=== PATIENT | female | born 1965 | race Caucasian/White ===

== ENCOUNTER 2017-11-20 19:47 | Emergency (ER) | payer MEDICAID, SELFPAY ==
[2017-11-20 22:15] VITALS: BP 147/109; PULSE 93; RESP 18; TEMP 36.6; O2SAT 91; BMI 25.8
--- NOTE | 2017-11-21 00:14 | HMH.EDBACK ---
ED Disposition Clinical Impression: Lumbar radiculopathy Disposition: Home, Self-Care Condition on Discharge: Good Instructions: DI for Low Back Pain Referrals: Dashawn Magdaleno MD [Primary Care Provider] - - Critical Care Critical Care Time: No Attestation: On 11/20/17, the high probability of a clinically significant, sudden or life threatening deterioration of the following system(s) required my full and direct attention, intervention and personal management. The time I documented below is in addition to time spent performing reported procedures but includes the following listed in this critical care notation. Medical Decision Making - Medical Records Medical records reviewed: Yes: I reviewed the patient's medical records. Vital Signs: 11/20/17 22:15 Temperature 97.9 F Temperature Source Oral Pulse Rate [Left Brachial] 93 H Respiratory Rate 18 Blood Pressure [Left Arm] 147/109 Blood Pressure Mean [Left Arm] 121 Blood Pressure Source [Left Arm] Automatic Cuff Blood Pressure Position [Left Arm] Sitting 02 Sat by Pulse Oximetry 91 L Oxygen Delivery Method Room Air - Jesus Manuel Inquiry Pt receiving controlled substance: No [facility] History Medical History: Denies:: Cancer, Diabetes Mellitus Type 1, Diabetes Mellitus Type 2, MRSA Amputation: No Fractures: No - *Social History Educational Level: Completed High School Smoking Status: Current every day smoker Tobacco Type: cigarettes # Packs/Day (cigarettes): 1 Alcohol Intake: never - Psychiatric History Expresses thoughts of harming self/others: None Suicide Plan Description: No Plan ROS Obtained: Yes All systems reviewed & no additional complaints except - Genitourinary Denies blood in urine - Musculoskeletal Reports back pain, Reports radiating pain into limb Physical Exam - General General appearance: alert - Head Head exam: atraumatic - Eye Eye exam: Present: PERRL, EOMI - ENT ENT exam: Present: normal oropharynx - Neck Neck exam: Present: normal inspection - Respiratory Respiratory exam: Present: normal lung sounds bilaterally - Cardiovascular Cardiovascular exam: Present: regular rate - Extremities Exam Extremities exam: Present: normal inspection - Back Exam Back exam: Present: straight leg raise (L) - Neurological Exam Neurological exam: Present: alert, oriented X3 - Psychiatric Psychiatric exam: Present: normal affect - Skin Skin exam: Present: warm Back Pain HPI - General Chief Complaint: Back Pain/Injury Stated Complaint: left leg pain Time Seen by Provider: 11/21/17 00:15 Mode of Arrival: Wheelchair Source of Information: Patient, Spouse Limitations: No Limitations Description of Symptoms (Recalled from ER Triage Doc. by RN): REPORTS SCIATIC PAIN IN LEFT LEG - History of Present Illness HPI Narrative: pt with acute excerbation of l/s disc disease Complaint: back pain Onset (ago): hour(s) Similar Symptoms Previously: Yes Location: lumbar spine Severity: moderate Radiation: left leg Relieving factors: none Exacerbating factors: movement - Related Data Home Medications Medication Instructions Recorded Confirmed Acyclovir 800 mg PO DAILY 11/20/17 11/20/17 Amlodipine Besylate [Amlodipine 10 mg PO DAILY 11/20/17 11/20/17 10mg Tab] Carvedilol [Carvedilol 12.5mg Tab] 12.5 mg PO DAILY 11/20/17 11/20/17 Cyclobenzaprine HCl 10 mg PO TID 11/20/17 11/20/17 [Cyclobenzaprine 10mg Tab] Fluticasone Propionate [Flonase 1 spr NS BID 11/20/17 11/20/17 50mcg nasal spray 16gm] Gabapentin [Neurontin 600mg 600 mg PO TID 11/20/17 11/20/17 tablet] Levothyroxine Sodium 75 mcg PO DAILY 11/20/17 11/20/17 [Levothyroxine 75mcg (0.075mg) Tab] Loratadine/Pseudoephedrine 1 each PO DAILY 11/20/17 11/20/17 [Allergy Relief D-24 Tablet] Losartan Potassium 50 mg PO DAILY 11/20/17 11/20/17 Tiotropium [place] [Spiriva 18 mcg IH BID 11/20/17 11/20/17 18mcg/puff inhaler] raNITIdine
--- NOTE | 2017-11-21 00:18 | ED_ITS ---
ED Disposition Clinical Impression: Lumbar radiculopathy Disposition: Home, Self-Care Condition on Discharge: Good Instructions: DI for Low Back Pain Referrals: Dashawn Magdaleno MD [Primary Care Provider] - - Critical Care Critical Care Time: No Attestation: On 11/20/17, the high probability of a clinically significant, sudden or life threatening deterioration of the following system(s) required my full and direct attention, intervention and personal management. The time I documented below is in addition to time spent performing reported procedures but includes the following listed in this critical care notation. Medical Decision Making - Medical Records Medical records reviewed: Yes: I reviewed the patient's medical records. Vital Signs: 11/20/17 22:15 Temperature 97.9 F Temperature Source Oral Pulse Rate [Left Brachial] 93 H Respiratory Rate 18 Blood Pressure [Left Arm] 147/109 Blood Pressure Mean [Left Arm] 121 Blood Pressure Source [Left Arm] Automatic Cuff Blood Pressure Position [Left Arm] Sitting 02 Sat by Pulse Oximetry 91 L Oxygen Delivery Method Room Air - Jesus Manuel Inquiry Pt receiving controlled substance: No [facility] History Medical History: Denies:: Cancer, Diabetes Mellitus Type 1, Diabetes Mellitus Type 2, MRSA Amputation: No Fractures: No - *Social History Educational Level: Completed High School Smoking Status: Current every day smoker Tobacco Type: cigarettes # Packs/Day (cigarettes): 1 Alcohol Intake: never - Psychiatric History Expresses thoughts of harming self/others: None Suicide Plan Description: No Plan ROS Obtained: Yes All systems reviewed & no additional complaints except - Genitourinary Denies blood in urine - Musculoskeletal Reports back pain, Reports radiating pain into limb Physical Exam - General General appearance: alert - Head Head exam: atraumatic - Eye Eye exam: Present: PERRL, EOMI - ENT ENT exam: Present: normal oropharynx - Neck Neck exam: Present: normal inspection - Respiratory Respiratory exam: Present: normal lung sounds bilaterally - Cardiovascular Cardiovascular exam: Present: regular rate - Extremities Exam Extremities exam: Present: normal inspection - Back Exam Back exam: Present: straight leg raise (L) - Neurological Exam Neurological exam: Present: alert, oriented X3 - Psychiatric Psychiatric exam: Present: normal affect - Skin Skin exam: Present: warm Back Pain HPI - General Chief Complaint: Back Pain/Injury Stated Complaint: left leg pain Time Seen by Provider: 11/21/17 00:15 Mode of Arrival: Wheelchair Source of Information: Patient, Spouse Limitations: No Limitations Description of Symptoms (Recalled from ER Triage Doc. by RN): REPORTS SCIATIC PAIN IN LEFT LEG - History of Present Illness HPI Narrative: pt with acute excerbation of l/s disc disease Complaint: back pain Onset (ago): hour(s) Similar Symptoms Previously: Yes Location: lumbar spine Severity: moderate Radiation: left leg Relieving factors: none Exacerbating factors: movement - Related Data Home Medications Medication Instructions Recorded Confirmed Acyclovir 800 mg PO DAILY 11/20/17 11/20/17 Amlodipine Besylate [Amlodipine 10 mg PO DAILY 11/20/17
[2017-11-21 00:20] VITALS: BP 145/89; PULSE 89; RESP 16; TEMP 36.7; O2SAT 91
== END 2017-11-21 00:27 | disposition home or self-care (01) ==
PROVIDERS: Emergency Provider Emergency Medicine; Family Provider Internal Medicine Adolescent Medicine; PCP Emergency Medicine
DX: M54.32 Sciatica, left side (principal); F17.210 Nicotine dependence, cigarettes, uncomplicated
CPT/HCPCS: 96372; 99283

== ENCOUNTER → 2017-11-21 19:26 | Outpatient (REF) | payer MEDICAID, SELFPAY ==
[2017-11-21 20:07] LABS: Amphetamine/Metha Screen,Urine Negative ng/mL (<1000); Barbiturates Screen,Urine Negative ng/mL (<200); Benzodiazepines Screen,Urine Negative ng/mL (200); Cannabinoid Screen,Urine Positive ng/mL (<50); Cocaine Screen,Urine Negative ng/g (<300); Methadone Screen,Urine Negative ng/mL (<300); Opiate Screen,Urine Negative ng/mL (<300); Phencyclidine Screen,Urine Negative ng/mL (<25)
== END ==
LOC: LAB 19:26
PROVIDERS: Visit Provider Emergency Medicine
DX: Z79.899 Other long term (current) drug therapy (principal)
CPT/HCPCS: 80305

== ENCOUNTER → 2017-11-23 13:52 | Outpatient (CLI) | payer MEDICAID, SELFPAY ==
--- NOTE | 2017-11-23 | US_ITS ---
MM DIG MAMM BI DX W/CAD, US BREAST LT COMPLETE, US BREAST RT COMPLETE COMPARISON: 10/26/2017 INDICATION: Follow-up abnormal mammogram ORDERING PHYSICIAN: Dashanw Magdaleno MD PATIENT AGE: 52 years TECHNIQUE: Spot compression views are obtained of both breasts along with bilateral breast ultrasound FINDINGS: Left breast: There is a lobulated 2 x 1.4 cm nodule containing coarse calcification in the outer aspect of the left breast at 3:00 region corresponding to the mammographic abnormality. This is all and on ultrasound probably related to fibroadenoma however, biopsy is recommended. Asymmetric density is present in the medial left breast and appear to compress out as fibroglandular tissue Right breast: Asymmetric areas in the upper aspect of the right breast somewhat compress out and are probably related asymmetric fibroglandular tissue. Left breast ultrasound: There is a 2.8 x 0.8 cm solid nodule in the outer aspect of the left breast corresponding to the mammographic abnormality. The nodule is somewhat hypoechoic and there is decreased through transmission of sound. The nodule is fairly well-circumscribed without obvious spiculation' s. Small nodes are present in the axilla. Right breast ultrasound: No cystic or solid mass evident. No abnormalities evident in the areas of asymmetric density on the mammogram. IMPRESSION: 2.8 cm solid nodule outer aspect of left breast probably related to fibroadenoma however there are some features that are somewhat concerning an ultrasound-guided mammotome biopsy is recommended BI-RADS Category: 4 Suspicious Abnormality-Biopsy Considered RECOMMENDED FOLLOW-UP: IMM - IMMEDIATE FOLLOW-UP RECOMMENDED Ultrasound guided biopsy (A letter has been sent to the patient regarding results of the study.)
== END ==
PROVIDERS: Family Provider Internal Medicine Adolescent Medicine; PCP Emergency Medicine; Visit Provider Emergency Medicine
DX: R92.8 Other abnormal and inconclusive findings on diagnostic imaging of breast (principal)
CPT/HCPCS: 19083; 76641; 77066

== ENCOUNTER → 2017-12-06 13:34 | Outpatient (CLI) | payer MEDICAID, SELFPAY ==
--- NOTE | 2017-12-06 13:36 | US_ITS ---
US biopsy guidance, US breast LT complete HISTORY: Abnormal ultrasound and mammogram ITS.REASON: abnormal mammogram ORDERING PHYSICIAN: Dashawn Magdaleno MD PATIENT AGE: 52 years COMPARISON: Ultrasound of 11/23/2017 and mammogram of 11/23/2017 ULTRASOUND LEFT BREAST COMPLETE WITH AXILLA: Prebiopsy ultrasound performed of the left breast confirming the presence of an oval 2.8 x 0.87 m hypoechoic nodule within the 3:00 region of the left breast corresponding to the previously noted abnormality of 11/23/2017. LEFT BREAST BIOPSY WITH ULTRASOUND GUIDANCE, FNA AND CORE BIOPSY: TECHNIQUE: Following obtaining informed consent, using aseptic technique and local anesthesia with buffered lidocaine, fine-needle aspiration was performed of the nodule of interest using sonographic guidance. 3 passes were made into the nodule with a 25-gauge needle. Specimen was given to cytology. Multiple core biopsies were performed with 16-gauge Pb-Cut needle. It was difficult in penetrating the lesion as the needle was persistently deviated by the lesion. However, with ultrasound guidance the lesion was penetrated with a core biopsy needle.. The patient tolerated the procedure well without evidence of immediate complications and left the ultrasound suite in stable condition. CYTOLOGY:Negative for malignancy. Benign ductal groups and bone cells Pathology: Benign breast with stromal fibrosis and adenosis. Negative for carcinoma. IMPRESSION: The fine needle aspiration and core biopsy of left breast nodule shows benign findings. Would recommend short-term sonographic follow-up in 3 months to confirm short-term stability due to the difficulty in performing the biopsy.
== END ==
PROVIDERS: Family Provider Internal Medicine Adolescent Medicine; PCP Emergency Medicine; Visit Provider Emergency Medicine
DX: R92.8 Other abnormal and inconclusive findings on diagnostic imaging of breast (principal)
CPT/HCPCS: 19083; 76641; 76942; C2618

== ENCOUNTER → 2018-01-17 15:04 | Outpatient (REF) | payer MEDICAID, SELFPAY ==
[2018-01-17 19:22] LABS: Amphetamine/Metha Screen,Urine Negative ng/mL (<1000); Barbiturates Screen,Urine Negative ng/mL (<200); Benzodiazepines Screen,Urine Negative ng/mL (200); Cannabinoid Screen,Urine Positive ng/mL (<50); Cocaine Screen,Urine Negative ng/g (<300); Methadone Screen,Urine Negative ng/mL (<300); Opiate Screen,Urine Positive ng/mL (<300); Phencyclidine Screen,Urine Negative ng/mL (<25)
== END ==
LOC: LAB 15:04
PROVIDERS: Visit Provider Emergency Medicine
DX: Z79.899 Other long term (current) drug therapy (principal)
CPT/HCPCS: 80305

== ENCOUNTER → 2018-01-24 13:53 | Outpatient (CLI) | payer MEDICAID, SELFPAY ==
--- NOTE | 2018-01-24 13:57 | XR_ITS ---
XR hip LT 2-3V w/pelvis HISTORY: ITS.REASON: Hip Pain ORDERING PHYSICIAN: Dashawn Magdaleno MD PATIENT AGE: 52 years COMPARISON: None FINDINGS: No fracture or dislocation is evident. Minimal osteoarthritic changes with minimal osteophyte formation along the femoral head inferiorly. The joint space is well-preserved. No fracture or dislocation. No lytic or blastic change. IMPRESSION: Minimal osteoarthritis of the left hip
== END ==
PROVIDERS: PCP Emergency Medicine; Visit Provider Emergency Medicine
DX: M25.552 Pain in left hip (principal)
CPT/HCPCS: 73502

== ENCOUNTER → 2018-02-07 15:37 | Outpatient (CLI) | payer MEDICAID, SELFPAY ==
--- NOTE | 2018-02-07 15:40 | MR_ITS ---
MR lumbar spine wo con HISTORY: Low back pain worse on the left with left hip pain and bilateral leg numbness ORDERING PHYSICIAN: Dashawn Magdaleno MD PATIENT AGE: 52 years COMPARISON: None TECHNIQUE: Standard multiplanar multiecho sequences are performed without contrast. 3-D MIP and myelographic images are also rendered and reviewed FINDINGS: There is normal alignment. The spinal cord ends at the T12-L1 level. T11-T12: Minimal central disc protrusion with mild degenerative disc disease without impingement. T12-L1: Unremarkable. L1-L2: Mild degenerative disc disease with minimal bulging disc and minimal central disc protrusion slightly eccentric toward the right with mild facet and ligamentum flavum hypertrophy with mild bilateral foraminal narrowing. L2-L3: Mild facet and ligamentum flavum hypertrophy. L3-L4: Facet ligamentum hypertrophy with mild bilateral lateral recess and foraminal narrowing. Minimal bulging disc. L4-L5: Bulging disc along with facet and ligamentum flavum hypertrophy. There is small broad-based left paracentral disc protrusion. This is compressing upon the left L4 nerve root causing moderate left lateral recess narrowing and moderate left-sided foraminal narrowing. There is mild narrowing of the canal at this level and approximately 11 mm. L5-S1: Facet and hypertrophic change with mild bilateral foraminal narrowing slightly greater on the left. IMPRESSION: 1. Mild multilevel spondylosis with degenerative disc disease along with facet and ligamentum flavum hypertrophy. Please see above for detailed description at each level. 2. Minimal central disc protrusion T11-T12 3. Mild degenerative disc disease with minimal bulging disc and minimal central disc protrusion at L1-L2 slightly eccentric toward the right with mild facet and ligamentum flavum hypertrophy with mild bilateral foraminal narrowing 4. Bulging disc at L4-5 along with facet and ligamentum flavum hypertrophy. There is small broad-based left paracentral disc protrusion. This is compressing upon the left L4 nerve root causing moderate left lateral recess narrowing and moderate left-sided foraminal narrowing. There is mild narrowing of the canal at this level and approximately 11 mm.
== END ==
PROVIDERS: Family Provider Internal Medicine Adolescent Medicine; PCP Emergency Medicine; Visit Provider Emergency Medicine
DX: M54.9 Dorsalgia, unspecified (principal)
CPT/HCPCS: 72148; 76376

== ENCOUNTER → 2018-02-15 13:14 | Outpatient (CLI) | payer MEDICAID, SELFPAY ==
[2018-02-15 17:35] LABS: Amphetamine/Metha Screen,Urine Negative ng/mL (<1000); Barbiturates Screen,Urine Negative ng/mL (<200); Benzodiazepines Screen,Urine Positive ng/mL (200); Cannabinoid Screen,Urine Positive ng/mL (<50); Cocaine Screen,Urine Negative ng/g (<300); Methadone Screen,Urine Negative ng/mL (<300); Opiate Screen,Urine Positive ng/mL (<300); Phencyclidine Screen,Urine Negative ng/mL (<25)
== END ==
PROVIDERS: Visit Provider Emergency Medicine
DX: Z79.899 Other long term (current) drug therapy (principal)
CPT/HCPCS: 80305

== ENCOUNTER → 2018-03-20 13:51 | Outpatient (REF) | payer MEDICAID, SELFPAY ==
[2018-03-20 16:55] LABS: Amphetamine/Metha Screen,Urine Negative ng/mL (<1000); Barbiturates Screen,Urine Negative ng/mL (<200); Benzodiazepines Screen,Urine Negative ng/mL (200); Cannabinoid Screen,Urine Positive ng/mL (<50); Cocaine Screen,Urine Negative ng/g (<300); Methadone Screen,Urine Negative ng/mL (<300); Opiate Screen,Urine Positive ng/mL (<300); Phencyclidine Screen,Urine Negative ng/mL (<25)
== END ==
LOC: LAB 13:51
PROVIDERS: Visit Provider Emergency Medicine
DX: Z79.899 Other long term (current) drug therapy (principal)
CPT/HCPCS: 80305

== ENCOUNTER → 2018-04-13 15:56 | Outpatient (CLI) | payer MEDICAID, SELFPAY | PROVIDERS: Visit Provider Emergency Medicine | DX: Z79.899 Other long term (current) drug therapy (principal) ==

== ENCOUNTER → 2018-05-16 11:08 | Outpatient (REF) | payer MEDICAID, SELFPAY ==
[2018-05-16 16:21] LABS: Amphetamine/Metha Screen,Urine Negative ng/mL (<1000); Barbiturates Screen,Urine Negative ng/mL (<200); Benzodiazepines Screen,Urine Negative ng/mL (200); Cannabinoid Screen,Urine Positive ng/mL (<50); Cocaine Screen,Urine Negative ng/g (<300); Methadone Screen,Urine Negative ng/mL (<300); Opiate Screen,Urine Positive ng/mL (<300); Phencyclidine Screen,Urine Negative ng/mL (<25)
== END ==
LOC: LAB 11:08
PROVIDERS: Visit Provider Emergency Medicine
DX: Z79.899 Other long term (current) drug therapy (principal)
CPT/HCPCS: 80305

== ENCOUNTER → 2018-05-22 11:18 | Outpatient (CLI) | payer MEDICAID, SELFPAY ==
[2018-05-22 12:05] VITALS: PULSE 83
== END ==
PROVIDERS: Family Provider Internal Medicine Adolescent Medicine; PCP Emergency Medicine; Visit Provider Emergency Medicine
DX: J44.9 Chronic obstructive pulmonary disease, unspecified (principal)
CPT/HCPCS: 94060; 94640

== ENCOUNTER → 2018-06-15 15:42 | Outpatient (REF) | payer MEDICAID, SELFPAY ==
[2018-06-15 18:53] LABS: Amphetamine/Metha Screen,Urine Negative ng/mL (<1000); Barbiturates Screen,Urine Negative ng/mL (<200); Benzodiazepines Screen,Urine Negative ng/mL (<200); Cannabinoid Screen,Urine Positive ng/mL (<50); Cocaine Screen,Urine Negative ng/mL (<300); Methadone Screen,Urine Negative ng/mL (<300); Opiate Screen,Urine Positive ng/mL (<300); Phencyclidine Screen,Urine Negative ng/mL (<25)
== END ==
LOC: LAB 15:42
PROVIDERS: Visit Provider Emergency Medicine
DX: Z79.899 Other long term (current) drug therapy (principal)
CPT/HCPCS: 80305

== ENCOUNTER → 2018-07-17 10:18 | Outpatient (REF) | payer MEDICAID, SELFPAY ==
[2018-07-17 17:09] LABS: Amphetamine/Metha Screen,Urine Negative ng/mL (<1000); Barbiturates Screen,Urine Negative ng/mL (<200); Benzodiazepines Screen,Urine Negative ng/mL (<200); Cannabinoid Screen,Urine Positive ng/mL (<50); Cocaine Screen,Urine Negative ng/mL (<300); Methadone Screen,Urine Negative ng/mL (<300); Opiate Screen,Urine Positive ng/mL (<300); Phencyclidine Screen,Urine Negative ng/mL (<25)
== END ==
LOC: LAB 10:18
PROVIDERS: Visit Provider Emergency Medicine
DX: Z79.899 Other long term (current) drug therapy (principal)
CPT/HCPCS: 80305

== ENCOUNTER → 2018-08-06 06:30 | Outpatient (CLI) | payer MEDICAID, SELFPAY ==
--- NOTE | 2018-08-06 06:32 | NM_ITS ---
History and Indications: Hypertension, tobacco use, family history, chest pain shortness of breath Procedure: Patient received a 0.4 mg of intravenous Lexiscan, resting heart rate was 73 bpm resting blood pressure 131/92, with intravenous Lexiscan maximum heart rate achieved was 106 bpm which is less than 85% of the maximum predicted heart rate and a blood pressure was 132/95. With Lexiscan patient complained of mild shortness of breath Electrocardiogram: Resting electrocardiogram showed sinus rhythm, with Lexiscan there is less than 1.[address] segment depression noted from the baseline EKG. The EKG portion of the Lexiscan Myoview is nondiagnostic. Cardiac stress and resting SPECT images: Cardiac stress and rest SPECT images were obtained using technetium 99 Myoview 32.6 mCi at stress and 9.6 mCi at rest, gated SPECT further analysis of segmental wall motion and calculation of the ejection fraction also done. Cardiac stress and resting SPECT images show uniform myocardial activity without segmental perfusion abnormality, computer derived ejection fraction 60% with no regional wall motion abnormality. Normal contractility. Conclusion: 1. The EKG portion of the Lexiscan Myoview is nondiagnostic. 2. No scintigraphic evidence of reversible ischemia seen, computer derived ejection fraction is 60% with no regional wall motion abnormality, right ventricle is normal size and contractility. 3. Normal Lexiscan Myoview study.
--- NOTE | 2018-08-06 08:19 | HMH.ITSHM ---
CARVEDILOL AMLODIPINE LOSARTAN CYCLOBENZAPRINE OMEPRAZOLE LEVOTHYROXINE OXYCODONE FLUTICASONE BREO GABAPENTIN BUPROPION
== END ==
PROVIDERS: Family Provider Internal Medicine Adolescent Medicine; PCP Emergency Medicine; Visit Provider Internal Medicine
DX: R07.9 Chest pain, unspecified (principal); I20.9 Angina pectoris, unspecified; R06.09 Other forms of dyspnea; E03.9 Hypothyroidism, unspecified; G47.9 Sleep disorder, unspecified; I10 Essential (primary) hypertension; J44.9 Chronic obstructive pulmonary disease, unspecified; K21.9 Gastro-esophageal reflux disease without esophagitis; R06.83 Snoring; R40.0 Somnolence; Z72.0 Tobacco use
CPT/HCPCS: 78452; 93017; 93306; A9502; J2785

== ENCOUNTER → 2018-08-13 17:22 | Outpatient (REF) | payer MEDICAID, SELFPAY ==
[2018-08-13 23:36] LABS: Amphetamine/Metha Screen,Urine Negative ng/mL (<1000); Barbiturates Screen,Urine Negative ng/mL (<200); Benzodiazepines Screen,Urine Negative ng/mL (<200); Cannabinoid Screen,Urine Positive ng/mL (<50); Cocaine Screen,Urine Negative ng/mL (<300); Methadone Screen,Urine Negative ng/mL (<300); Opiate Screen,Urine Positive ng/mL (<300); Phencyclidine Screen,Urine Negative ng/mL (<25)
== END ==
LOC: LAB 17:22
PROVIDERS: Visit Provider Emergency Medicine
DX: M54.16 Radiculopathy, lumbar region (principal); Z79.891 Long term (current) use of opiate analgesic
CPT/HCPCS: 80305

== ENCOUNTER → 2018-09-03 16:24 | Outpatient (REF) | payer MEDICAID, SELFPAY ==
[2018-09-03 19:09] LABS: Amphetamine/Metha Screen,Urine Negative ng/mL (<1000); Barbiturates Screen,Urine Negative ng/mL (<200); Benzodiazepines Screen,Urine Negative ng/mL (<200); Cannabinoid Screen,Urine Positive ng/mL (<50); Cocaine Screen,Urine Negative ng/mL (<300); Methadone Screen,Urine Negative ng/mL (<300); Opiate Screen,Urine Positive ng/mL (<300); Phencyclidine Screen,Urine Negative ng/mL (<25)
== END ==
LOC: LAB 16:24
PROVIDERS: Visit Provider Emergency Medicine
DX: Z79.899 Other long term (current) drug therapy (principal)
CPT/HCPCS: 80305

== ENCOUNTER → 2018-10-09 13:24 | Outpatient (CLI) | payer MEDICAID, SELFPAY ==
[2018-10-09 14:59] LABS: Amphetamine/Metha Screen,Urine Negative ng/mL (<1000); Barbiturates Screen,Urine Negative ng/mL (<200); Benzodiazepines Screen,Urine Negative ng/mL (<200); Cannabinoid Screen,Urine Positive ng/mL (<50); Cocaine Screen,Urine Negative ng/mL (<300); Methadone Screen,Urine Negative ng/mL (<300); Opiate Screen,Urine Positive ng/mL (<300); Phencyclidine Screen,Urine Negative ng/mL (<25)
== END ==
PROVIDERS: Visit Provider Emergency Medicine
DX: Z79.899 Other long term (current) drug therapy (principal)
CPT/HCPCS: 80305

== ENCOUNTER → 2018-11-07 13:46 | Outpatient (CLI) | payer MEDICAID, SELFPAY ==
[2018-11-07 21:11] LABS: Amphetamine/Metha Screen,Urine Negative ng/mL (<1000); Barbiturates Screen,Urine Negative ng/mL (<200); Benzodiazepines Screen,Urine Negative ng/mL (<200); Cannabinoid Screen,Urine Positive ng/mL (<50); Cocaine Screen,Urine Negative ng/mL (<300); Methadone Screen,Urine Negative ng/mL (<300); Opiate Screen,Urine Positive ng/mL (<300); Phencyclidine Screen,Urine Negative ng/mL (<25)
== END ==
PROVIDERS: Visit Provider Emergency Medicine
DX: Z79.899 Other long term (current) drug therapy (principal)
CPT/HCPCS: 80305

== ENCOUNTER → 2019-02-01 13:35 | Outpatient (CLI) | payer MEDICAID, SELFPAY ==
[2019-02-01 14:20] LABS: Amphetamine/Metha Screen,Urine Negative ng/mL (<1000); Barbiturates Screen,Urine Negative ng/mL (<200); Benzodiazepines Screen,Urine Negative ng/mL (<200); Cannabinoid Screen,Urine Positive ng/mL (<50); Cocaine Screen,Urine Negative ng/mL (<300); Methadone Screen,Urine Negative ng/mL (<300); Opiate Screen,Urine Positive ng/mL (<300); Phencyclidine Screen,Urine Negative ng/mL (<25)
== END ==
PROVIDERS: Visit Provider Emergency Medicine
DX: Z79.899 Other long term (current) drug therapy (principal)
CPT/HCPCS: 80305

== ENCOUNTER → 2019-02-27 10:09 | Outpatient (CLI) | payer MEDICAID, SELFPAY ==
--- NOTE | 2019-02-27 10:13 | MM_ITS ---
MM Dig screening mamm BI w/CAD ORDERING PHYSICIAN : Dashawn Magdaleno MD PATIENT AGE: 53 years GENDER: Female HISTORY no hormones. No new complaints. Previous needle biopsy left breast. Mother with breast cancer COMPARISON: Bilateral mammogram October 2017.. Bilateral diagnostic mammogram was spot views from November 2017. TECHNIQUE: Standard CC and MLO images were obtained. R2 CAD reviewed. Additional axillary cc & nipple profile MLO views bilateral LEFT BREAST:/... DISCUSSION & findings: Prior Ultrasound left breast November 23, 2017 and subsequent left breast ultrasound December 06, 2017 at time of percutaneous biopsy are reviewed. Patient had percutaneous ultrasound biopsy 12/06/2017- . Tissue obtained showed fibrocystic changes and adenosis did not show a fibroadenoma . Images clearly show the needle within the lesion with the FNA and subsequent core biopsy images, as well as performed by Dr. Clemens.. On today's images this ovoid slightly lobulated density at the deep left lateral left breast 3:00 appears is to be similar in size measurement.. Today 18 mm AP maximally.. The slightly denser appearing but this may be projectional and due to technique, on MLO view. It measures up to 22 mm length on the axillary cc view which appears similar most similar to the 2016 & 2018 mammogram. ... & Given there were benign biopsy results obtained from previous sampling this area, I believe follow-up would be adequate I would suggest a 6 month left breast mammogram & ultrasound follow up given its slightly lobulated character and slightly denser character on some views, so as to to further confirm stability. RIGHT BREAST. Stable appearing right breast with no new areas of concern Subtle minimal ridge of tissue at the deep axillary right breast is unchanged since 2017. And can be followed ....... IMPRESSION: ...... LEFT BREAST. Fairly stable appearance to the density at the deep 3:00 left breast No discrete change since initial available study from 2017. Ultrasound-guided Biopsy here November 2017 revealed benign findings; with no progression since since those exams. However given the focal slightly lobulated character & the fact that biopsy result did not confirm fibroadenoma ( as most suspected by ultrasound) would suggest a follow-up left mammogram along with left breast [id number] months to again evaluate this region to confirm stability. Hopefully With routine protocol thereafter. . RIGHT BREAST. No significant change, when slight difference in technique considered.. Stable subtle ridge density towards the tail the right breast. Follow-up in one year on the right adequate BI-RADS Category: 3 Probably Benign Finding Short Term Follow-up RECOMMENDED FOLLOW-UP: 6M -8 MONTH FOLLOW-UP Left mammogram and left breast ultrasound that time suggested (A letter has been sent to the patient regarding results of the study.)
== END ==
PROVIDERS: PCP Emergency Medicine; Visit Provider Emergency Medicine
DX: Z12.31 Encounter for screening mammogram for malignant neoplasm of breast (principal)
CPT/HCPCS: 77067

== ENCOUNTER → 2019-05-24 13:22 | Outpatient (CLI) | payer MEDICAID, SELFPAY ==
[2019-05-24 14:59] LABS: Amphetamine/Metha Screen,Urine Negative ng/mL (<1000); Barbiturates Screen,Urine Negative ng/mL (<200); Benzodiazepines Screen,Urine Negative ng/mL (<200); Cannabinoid Screen,Urine Positive ng/mL (<50); Cocaine Screen,Urine Negative ng/mL (<300); Methadone Screen,Urine Negative ng/mL (<300); Opiate Screen,Urine Positive ng/mL (<300); Phencyclidine Screen,Urine Negative ng/mL (<25)
== END ==
PROVIDERS: Visit Provider Emergency Medicine
DX: Z79.899 Other long term (current) drug therapy (principal)
CPT/HCPCS: 80305

== ENCOUNTER → 2019-05-30 12:52 | Outpatient (CLI) | payer MEDICAID, SELFPAY ==
--- NOTE | 2019-05-30 12:54 | US_ITS ---
MM Dig mamm DX unilat LT Ultrasound left breast completed with axilla since INDICATION: Follow-up abnormal mammogram ORDERING PHYSICIAN: TIP Darnell PATIENT AGE: 54 years COMPARISON: 02/27/2019, 11/23/2017 TECHNIQUE: Standard images performed along with spot compression views and left breast ultrasound FINDINGS: Macrolobulated nodular lesion is once again noted in the upper outer aspect of the left breast measuring approximately 2 cm. The nodule may be slightly more bulky when compared to 02/27/2019 and does appear slightly denser possibly due to involution of the surrounding fibroglandular tissue. Left breast ultrasound: There is a hypoechoic nodule at 2.7 x 0.7 cm in the 3:00 region left breast corresponding to the mammographic abnormality. This is parallel to the chest wall. Sonographic appearance is not significantly changed. Since no specific pathology was obtained on the original breast biopsy, would consider rebiopsy with these minor changes. IMPRESSION: Persistent nodule in the 3:00 region the left breast which may be slightly more bulky and denser on the mammogram. Recommend ultrasound guided mammotome biopsy BI-RADS Category: 4 Suspicious Abnormality-Biopsy Considered RECOMMENDED FOLLOW-UP: BIO - BIOPSY RECOMMENDED (A letter has been sent to the patient regarding results of the study.)
== END ==
PROVIDERS: PCP Emergency Medicine; Visit Provider Physician Assistant
DX: N63.20 Unspecified lump in the left breast, unspecified quadrant (principal)
CPT/HCPCS: 76641; 77065

== ENCOUNTER → 2019-06-26 09:30 | Outpatient (CLI) | payer MEDICAID, SELFPAY ==
--- NOTE | 2019-06-26 | MM_ITS ---
US mammotome bx LT Postbiopsy mammogram INDICATION: Slightly enlarging nodule 3:00 left breast. ORDERING PHYSICIAN: TIP Darnell PATIENT AGE: 54 years COMPARISON: 05/30/2019 TECHNIQUE: Following obtaining informed consent and timeout under aseptic conditions and local anesthesia with 1% buffered lidocaine and deeper anesthesia with lidocaine mixed with epinephrine, the nodule of interest was localized and a skin trip performed. Mammotomy needle was inserted in satisfactory position and multiple mammotomy cores were obtained. The nodule was noted to decrease in size moderately. A clip was then placed. The patient tolerated the procedure well without evidence of immediate complications. Pathology: Fibroadenomatoid change with focal marked chronic inflammation with irregular adenosis. In the comments section of the pathology report there is a sentence which reads: The differential diagnosis includes marked chronic inflammation with lymphocytes infiltrating the fibroadenomatoid change versus infiltrating lobular carcinoma . Will ask for a second opinion with within the pathology department and given and an addendum when that is available. Postbiopsy mammogram, 2 view left breast shows post biopsy changes with a clip in the upper outer aspect of the left breast. Previously noted nodule appears somewhat less prominent. IMPRESSION: Uneventful ultrasound-guided mammotome biopsy of the left breast. Second opinion with the pathology department pending. Addendum to follow once that is available..
== END ==
PROVIDERS: PCP Physician Assistant; Visit Provider Physician Assistant
DX: N63.21 Unspecified lump in the left breast, upper outer quadrant (principal)
CPT/HCPCS: 19083; 76942; 77065; 88305; 88342; C2618

== ENCOUNTER → 2019-07-29 17:56 | Outpatient (CLI) | payer MEDICAID, SELFPAY ==
[2019-07-29 19:19] LABS: Amphetamine/Metha Screen,Urine Negative ng/mL (<1000); Barbiturates Screen,Urine Negative ng/mL (<200); Benzodiazepines Screen,Urine Negative ng/mL (<200); Cannabinoid Screen,Urine Positive ng/mL (<50); Cocaine Screen,Urine Negative ng/mL (<300); Methadone Screen,Urine Negative ng/mL (<300); Opiate Screen,Urine Positive ng/mL (<300); Phencyclidine Screen,Urine Negative ng/mL (<25)
== END ==
PROVIDERS: Visit Provider Emergency Medicine
DX: M54.9 Dorsalgia, unspecified (principal)
CPT/HCPCS: 80305

== ENCOUNTER → 2019-09-02 11:12 | Outpatient (CLI) | payer MEDICAID, SELFPAY ==
--- NOTE | 2019-09-02 11:14 | MR_ITS ---
PROCEDURE: MR LUMBAR SPINE WO CON CLINICAL INDICATION: back pain Low back pain, bilateral leg pain and numbness and tingling COMPARISON: SPLUMBWO MR lumbar spine wo con from 02/07/2018 TECHNIQUE: Standard multiplanar multiecho sequences are performed without contrast. 3-D MIP and myelographic images are also rendered and reviewed FINDINGS: There is normal alignment. The spinal cord ends at the T12-L1 level. L1-L2: Degenerate disc disease with bulging disc. There is some show minimal kyphosis at this level. This is not significantly changed. There is minimal central disc protrusion unchanged. Mild facet and ligamentum hypertrophy. L2-L3: Mild facet ligamentum hypertrophy L3-L4: Facet ligamentum hypertrophy with mild disc desiccation with mild bilateral lateral recess and foraminal narrowing not significantly changed. L4-5: Degenerate disc disease with mild bulging disc along with facet ligamentum hypertrophy with mild to moderate left foraminal narrowing unchanged L5-S1: Facet ligamentum hypertrophy with moderate left foraminal narrowing not significantly changed. No extruded herniated disc bony canal stenosis or other significant anomaly. IMPRESSION: 1. L1-L2: Degenerate disc disease with bulging disc. There is some show minimal kyphosis at this level. This is not significantly changed. There is minimal central disc protrusion unchanged. Mild facet and ligamentum hypertrophy. 2. L3-L4: Facet ligamentum hypertrophy with mild disc desiccation with mild bilateral lateral recess and foraminal narrowing not significantly changed. 3. L4-5: Degenerate disc disease with mild bulging disc along with facet ligamentum hypertrophy with mild to moderate left foraminal narrowing unchanged 4. L5-S1: Facet ligamentum hypertrophy with moderate left foraminal narrowing not significantly changed. 5. No extruded herniated disc bony canal stenosis or other significant anomaly. Dictated by: Delta Clemens MD 09/03/2019 05:30 Electronically signed by Delta Clemens MD in [place] 09/03/2019 05:30
== END ==
PROVIDERS: PCP Emergency Medicine; Visit Provider Emergency Medicine
DX: M54.16 Radiculopathy, lumbar region (principal)
CPT/HCPCS: 72148; 76376

== ENCOUNTER → 2019-09-25 18:00 | Outpatient (CLI) | payer OTHER, SELFPAY ==
[2019-09-25 20:43] LABS: Amphetamine/Metha Screen,Urine Negative ng/mL (<1000); Barbiturates Screen,Urine Negative ng/mL (<200); Benzodiazepines Screen,Urine Negative ng/mL (<200); Cannabinoid Screen,Urine Positive ng/mL (<50); Cocaine Screen,Urine Negative ng/mL (<300); Methadone Screen,Urine Negative ng/mL (<300); Opiate Screen,Urine Positive ng/mL (<300); Phencyclidine Screen,Urine Negative ng/mL (<25)
== END ==
PROVIDERS: Visit Provider Emergency Medicine
DX: Z79.899 Other long term (current) drug therapy (principal)
CPT/HCPCS: 80305

== ENCOUNTER → 2019-10-09 14:59 | Outpatient (CLI) | payer OTHER, SELFPAY ==
--- NOTE | 2019-10-09 15:02 | MR_ITS ---
PROCEDURE: MR CERVICAL SPINE WO CON CLINICAL INDICATION: neck pain Neck pain and numbness tingling, bilateral arm pain numbness and tingling COMPARISON: 06/01/2015 TECHNIQUE: Standard multiplanar multiecho sequences are performed without contrast. 3-D MIP and myelographic images are also rendered and reviewed FINDINGS: There is normal alignment. Cranial cervical junction has an unremarkable appearance. The C2-C3: Minimal central disc protrusion versus mild prominence of the posterior longitudinal ligament without impingement. C3-C4: Unremarkable. C4-C5: Mild degenerative disc disease with a small left paracentral disc protrusion with minimal effacement of the anterior left aspect of the cord C5-C6: Degenerate disc disease with a broad based disc osteophyte complex in both the left paracentral and right paracentral region resulting in canal stenosis of 9 mm, bilateral lateral recess narrowing and severe bilateral foraminal narrowing. The lateral recess narrowing is more severe on the left due to uncovertebral osteophyte. The left lateral recess and foraminal narrowing has increased compared to the previous exam. The disc osteophyte complex has slightly enlarged on the right compared to the previous study with slight increase impingement upon the cord. C6-C7: Broad-based disc osteophyte complex causing mild bilateral lateral recess narrowing along with bilateral foraminal narrowing and narrowing of the canal at 9 mm slightly more prominent compared to the previous exam. C7-T1: Unremarkable. IMPRESSION: 1. C4-C5: Mild degenerative disc disease with a small left paracentral disc protrusion with minimal effacement of the anterior left aspect of the cord 2. C5-C6: Degenerate disc disease with a broad based disc osteophyte complex in both the left paracentral and right paracentral region resulting in canal stenosis of 9 mm, bilateral lateral recess narrowing and severe bilateral foraminal narrowing. The lateral recess narrowing is more severe on the left due to uncovertebral osteophyte. The left lateral recess and foraminal narrowing has increased compared to the previous exam. The disc osteophyte complex has slightly enlarged on the right compared to the previous study with slight increase impingement upon the cord. 3. C6-C7: Broad-based disc osteophyte complex causing mild bilateral lateral recess narrowing along with bilateral foraminal narrowing and narrowing of the canal at 9 mm slightly more prominent compared to the previous exam Dictated by: Delta Clemens MD 10/10/2019 13:49 Electronically signed by Delta Clemens MD in [place] 10/10/2019 13:49
== END ==
PROVIDERS: PCP Emergency Medicine; Visit Provider Emergency Medicine
DX: M54.2 Cervicalgia (principal)
CPT/HCPCS: 72141; 76376

== ENCOUNTER → 2019-11-07 14:53 | Outpatient (POV) | payer OTHER, SELFPAY | PROVIDERS: Visit Provider Neurological Surgery | DX: Z00.00 Encounter for general adult medical examination without abnormal findings (principal) ==

== ENCOUNTER → 2019-11-08 16:58 | Outpatient (CLI) | payer OTHER, SELFPAY ==
[2019-11-08 19:21] LABS: Amphetamine/Metha Screen,Urine Negative ng/mL (<1000); Barbiturates Screen,Urine Negative ng/mL (<200); Benzodiazepines Screen,Urine Negative ng/mL (<200); Cannabinoid Screen,Urine Positive ng/mL (<50); Cocaine Screen,Urine Negative ng/mL (<300); Methadone Screen,Urine Negative ng/mL (<300); Opiate Screen,Urine Positive ng/mL (<300); Phencyclidine Screen,Urine Negative ng/mL (<25)
== END ==
PROVIDERS: Visit Provider Emergency Medicine
DX: Z79.899 Other long term (current) drug therapy (principal)
CPT/HCPCS: 80305

== ENCOUNTER → 2020-01-06 16:48 | Outpatient (CLI) | payer OTHER, SELFPAY ==
[2020-01-06 19:15] LABS: Amphetamine/Metha Screen,Urine Negative ng/mL (<1000); Barbiturates Screen,Urine Negative ng/mL (<200); Benzodiazepines Screen,Urine Negative ng/mL (<200); Cannabinoid Screen,Urine Positive ng/mL (<50); Cocaine Screen,Urine Negative ng/mL (<300); Methadone Screen,Urine Negative ng/mL (<300); Opiate Screen,Urine Positive ng/mL (<300); Phencyclidine Screen,Urine Negative ng/mL (<25)
== END ==
PROVIDERS: Visit Provider Emergency Medicine
DX: Z79.899 Other long term (current) drug therapy (principal)
CPT/HCPCS: 80305

== ENCOUNTER → 2020-06-02 11:18 | Outpatient (CLI) | payer OTHER, SELFPAY ==
[2020-06-02 14:50] LABS: Coronavirus 19 IgG Antibody Positive (Negative); Coronavirus 19 IgM Antibody Negative (Negative)
== END ==
PROVIDERS: Visit Provider Emergency Medicine
DX: Z03.818 Encounter for observation for suspected exposure to other biological agents ruled out (principal)
CPT/HCPCS: 36415; 86328

== ENCOUNTER → 2020-06-03 20:15 | Outpatient (CLI) | payer OTHER, SELFPAY | PROVIDERS: PCP Emergency Medicine; Visit Provider Emergency Medicine | DX: G47.36 Sleep related hypoventilation in conditions classified elsewhere (principal); I10 Essential (primary) hypertension; R40.0 Somnolence; R06.83 Snoring; G47.30 Sleep apnea, unspecified | CPT/HCPCS: 95810 ==

== ENCOUNTER → 2020-06-25 11:11 | Outpatient (CLI) | payer OTHER, SELFPAY ==
--- NOTE | 2020-06-25 11:36 | XR_ITS ---
PROCEDURE: XR CHEST 2V CLINICAL HISTORY: COPD Chest pain, smoker COMPARISON: CR CXR CHEST(2 VIEWS-NOT PORTABLE) from 02/08/2016 FINDINGS: The cardiomediastinal silhouette and pulmonary vascularity are within normal limits. The lungs are clear without infiltrates, suspicious nodules, or pleural effusions. There is evidence of old granulomatous disease. No acute bony findings. IMPRESSION: No change with no acute finding Dictated b Delta Clemens MD 06/25/2020 15:07 Delta Clemens MD in [place] 06/25/2020 15:07
[2020-06-25 13:09] LABS: Ferritin 21.5 ng/ml (11.1-264)
== END ==
PROVIDERS: PCP Emergency Medicine; Visit Provider Specialist
DX: E83.10 Disorder of iron metabolism, unspecified (principal)
CPT/HCPCS: 36415; 71046; 82728

== ENCOUNTER → 2020-07-01 11:24 | Outpatient (CLI) | payer OTHER, SELFPAY | PROVIDERS: PCP Emergency Medicine; Visit Provider Specialist | DX: G47.36 Sleep related hypoventilation in conditions classified elsewhere (principal); G47.30 Sleep apnea, unspecified | CPT/HCPCS: 94060; 94618 ==

== ENCOUNTER → 2021-02-19 15:20 | Outpatient (CLI) | payer MEDICARE, OTHER, SELFPAY ==
[2021-02-19 16:13] LABS: Barbiturates Screen,Urine Negative ng/ml (<200)
[2021-02-19 16:14] LABS: Benzodiazepines Screen,Urine Negative ng/ml (<200)
[2021-02-19 16:15] LABS: Amphetamine/Metha Screen,Urine Negative ng/ml (<1000); Methadone Screen,Urine Negative ng/ml (<300)
[2021-02-19 16:16] LABS: Cannabinoid Screen,Urine Positive ng/ml (<50)
[2021-02-19 16:17] LABS: Cocaine Screen,Urine Negative ng/ml (<300); Opiate Screen,Urine Positive ng/ml (<300)
[2021-02-19 16:18] LABS: Phencyclidine Screen,Urine Negative ng/ml (<25)
== END ==
PROVIDERS: Visit Provider Emergency Medicine
DX: M54.12 Radiculopathy, cervical region (principal)
CPT/HCPCS: 80305

== ENCOUNTER → 2021-04-21 14:50 | Outpatient (CLI) | payer MEDICARE, OTHER, SELFPAY ==
[2021-04-21 17:00] LABS: Amphetamine/Metha Screen,Urine Negative ng/ml (<1000); Barbiturates Screen,Urine Negative ng/ml (<200); Benzodiazepines Screen,Urine Negative ng/ml (<200); Cannabinoid Screen,Urine Positive ng/ml (<50); Cocaine Screen,Urine Negative ng/ml (<300); Methadone Screen,Urine Negative ng/ml (<300); Opiate Screen,Urine Positive ng/ml (<300); Phencyclidine Screen,Urine Negative ng/ml (<25)
== END ==
PROVIDERS: Visit Provider Emergency Medicine
DX: M54.12 Radiculopathy, cervical region (principal); Z79.899 Other long term (current) drug therapy
CPT/HCPCS: 80305

== ENCOUNTER → 2021-07-16 17:28 | Outpatient (CLI) | payer MEDICARE, OTHER, SELFPAY ==
[2021-07-16 19:15] LABS: Barbiturates Screen,Urine Negative ng/ml (<200); Benzodiazepines Screen,Urine Positive ng/ml (<200)
[2021-07-16 19:16] LABS: Amphetamine/Metha Screen,Urine Negative ng/ml (<1000)
[2021-07-16 19:17] LABS: Cannabinoid Screen,Urine Negative ng/ml (<50); Cocaine Screen,Urine Negative ng/ml (<300)
[2021-07-16 19:18] LABS: Methadone Screen,Urine Negative ng/ml (<300)
[2021-07-16 19:19] LABS: Opiate Screen,Urine Positive ng/ml (<300); Phencyclidine Screen,Urine Negative ng/ml (<25)
== END ==
PROVIDERS: Visit Provider Emergency Medicine
DX: M54.12 Radiculopathy, cervical region (principal)
CPT/HCPCS: 80305

== ENCOUNTER → 2021-09-29 16:01 | Outpatient (CLI) | payer MEDICARE, OTHER, SELFPAY ==
[2021-09-29 17:01] LABS: Amphetamine/Metha Screen,Urine Negative ng/ml (<1000)
[2021-09-29 17:02] LABS: Barbiturates Screen,Urine Negative ng/ml (<200)
[2021-09-29 17:03] LABS: Benzodiazepines Screen,Urine Positive ng/ml (<200); Cannabinoid Screen,Urine Positive ng/ml (<50)
[2021-09-29 17:05] LABS: Cocaine Screen,Urine Negative ng/ml (<300)
[2021-09-29 17:06] LABS: Methadone Screen,Urine Negative ng/ml (<300)
[2021-09-29 17:07] LABS: Opiate Screen,Urine Positive ng/ml (<300); Phencyclidine Screen,Urine Negative ng/ml (<25)
== END ==
PROVIDERS: Visit Provider Emergency Medicine
DX: M54.12 Radiculopathy, cervical region (principal)
CPT/HCPCS: 80305

== ENCOUNTER → 2021-12-03 15:03 | Outpatient (CLI) | payer MEDICARE, OTHER, SELFPAY | PROVIDERS: Visit Provider Nurse Practitioner | DX: U07.1 COVID-19 (principal) | CPT/HCPCS: C9803; U0003; U0005 ==

== ENCOUNTER → 2021-12-27 13:32 | Outpatient (CLI) | payer MEDICARE, MEDICAID, SELFPAY ==
--- NOTE | 2021-12-27 13:36 | MM_ITS ---
PROCEDURE INFORMATION: Exam: MG Bilateral Screening 3D Mammography Exam date and time: 12/27/2021 1:36 PM Age: 56 years old Clinical indication: Encounter for screening mammogram for malignant neoplasm of breast TECHNIQUE: Imaging protocol: Bilateral Screening tomosynthesis and 2D mammography including computer-aided detection (CAD) when performed. COMPARISON: 1. MG MM clip placement LT 06/26/2019 11:30 AM 2. MG DIG MAMM-DX UNI-LT 05/30/2019 1:32 PM FINDINGS: MAMMOGRAPHY: Breast composition: The breast tissue is composed of scattered areas of fibroglandular density. Mass: None. Architectural distortion: None. Calcifications: No suspicious calcifications. Asymmetric density: None. Skin thickening: None. Axillary adenopathy: None. IMPRESSION: No mammographic evidence of malignancy. Annual screening is recommended unless otherwise clinically indicated. ASSESSMENT: BI-RADS Category 1: Negative
== END ==
PROVIDERS: PCP Emergency Medicine; Visit Provider Emergency Medicine
DX: Z12.31 Encounter for screening mammogram for malignant neoplasm of breast (principal)
CPT/HCPCS: 77063; 77067

== ENCOUNTER → 2022-01-20 10:55 | Outpatient (CLI) | payer MEDICARE, MEDICAID, SELFPAY ==
--- NOTE | 2022-01-20 | CA_ITS ---
APPROVED REPORT Exam: Pharmacologic Technologist: Nan Moss, Ht: 5 ft 10 in Wt: 195 lbs BSA: 2.07 m2 HR: 82 bpm BP: 129/104 mmHg Rhythm: NSR Indications: CP, SOA Medical History Medical History: HTN Medications: Omeprazole,,,,, Levothyroxine,,,,, Aspirin,,,,, Gabapentin,,,,, Losartan,,,,, HCTZ,,,,, Carvedilol,,,,, Ropinirole,,,,, Vit D3,,,,, KloNOPIN,,,,, LoraTADINE,,,,, OxYCODONE,,,,, Cardiac Risk Factors: HTN Stress Test Details Test: LEXISCAN HR Resting HR: 82 bpm Max Heart Rate (APMHR): 166.680559 bpm Max HR Achieved: 107 bpm Target HR (85% APMHR): 141.213310 bpm % of APMHR: 64.46 Recovery HR: 96 bpm BP Resting BP: 129/104 mmHg Max BP: 143/100 mmHg Recovery BP: 142.0/104.0 mmHg ECG Resting ECG: NSR Clinical Exercise duration: 04:00 min Highest Stage Achieved: Exercise capacity: 1.0 METs Stress ECG Conclusion During lexiscan pt experinced very mild SOA, no CP noted. No arrthymias noted. No significant ST changes. Unremarkable lexiscan stress. Myoview images reported separately. Test Summary REST . . . . . . . Sitting REST 05:24 . . 82 . 129/104 . . Stage 1 01:00 . . 102 . . . . Stage 2 01:00 . . 106 . . . . Stage 3 01:00 . . 99 . 143/100 . . Stage 4 01:00 . . 99 . 128/105 . Stop exercise at 04:00 RECOVERY 01:00 . . 97 . . . . RECOVERY 02:00 . . 95 . 142/104 . . RECOVERY 03:00 . . 91 . 142/104 . . RECOVERY 03:27 . . 96 . 137/ 96 . . Electronically signed by : Moe Boyd MD 01/20/2022 15:24:47
--- NOTE | 2022-01-20 10:55 | NM_ITS ---
APPROVED REPORT Exam: Nuclear Stress Test Indication: Chest pain, SOB, Palpitations, HTN, Tobacco use, Family history Patient Location: Outpatient Stress Tech: Nan BACA Tech:Criselda ButlerLAURA RT(R)(N) Ht: 5 ft 10 in Wt: 180 lbs Bra Size: 36C HR: 82 bpm BP: 129/104 mmHg BSA: 2.00 m2 BMI: 25.8 History: Chest pain, SOB, Palpitations, HTN, Tobacco use, Family history Procedure: Patient received a 0.4 mg of intravenous Lexiscan, resting heart rate 82 bpm, resting blood pressure 129/104 mmHg, with Lexiscan maximum heart rate achived was 105 bpm which is Less than 85 % of the maximum predicted heart rate and blood pressure was 120/99 mmHg. With Lexiscan, patient denied any complaint of chest pain. Electrocardiogram Resting electrocardiogram shows sinus rhythm, with Lexiscan there is less than 1.[address] segment depression noted from the baseline EKG. The EKG portion of the Lexiscan is nondiagnostic. Cardiac Stress and Resting SPECT Images: Cardiac Stress and Resting SPECT images were obtained using technetium 99m Myoview 31.1 mCi stress and 10.70 mCi at rest. Gated SPECT for analysis of segmental wall motion and calculation of ejection fraction also done. Cardiac stress and resting SPECT images show uniform myocardial activity without segmental perfusion abnormality, computer derived ejection fraction is 60% with no regional wall motion abnormality, right ventricle is normal size and contractility. Conclusion: 1. The EKG portion of the Lexiscan is nondiagnostic. 2. No scintigraphic evidence of reversible ischemia seen, compared right ejection fraction is 60% with no regional wall motion abnormality, right ventricle is normal size and contractility. 3. Normal Lexiscan Myoview study. Electronically signed by : Moe Boyd MD 01/21/2022 09:20:41
--- NOTE | 2022-01-20 11:43 | CA_ITS ---
APPROVED REPORT EXAM: Comprehensive 2D, Doppler, and color-flow Echocardiogram Sas Analyst: Lulu Mcdaniel RT(R) Ht: 5 ft 10 in Wt: 195lbs BSA: 2.07 BP: 120/78 mmHg Indications: CP, COPD, smoker, edema, HTN, GUNDERSON, GERD, APPLE 2D Dimensions LVOT 1.94 cm (M/F) 1.5-2.5 M-Mode Dimensions RVDd 2.75 cm (0.9-2.6) LA Diam 2.55 cm (1.9-4.0) LVDd 4.85 cm (3.5-5.7) Ao Diam 2.83 cm (2.0-3.7) LVDs 3.82 cm (3.5-5.7) IVSd 0.71 cm (0.6-1.1) PWd 0.75 cm (0.6-1.1) EF (Teich) 43.10% FS 21.20% EDV (Teich) 110.20 mL ESV (Teich) 62.70 mL LV Diastology E Decel Time 203.00 (160-240 msec) E/A Ratio 0.6 MED E' 9.70 (< 7 cm/sec) E'/MED E' Ratio 5.38 (>14) LAT E' 10.00 (<10 cm/sec) E/LAT E' Ratio 5.22 (>14) Mitral Valve MV E Max Honorio. 52.00 (40-130 cm/s) MV A Velocity 83.00 (40-130 cm/s) E/A Ratio 0.63 MV Decel. Time 203.00 (160-240 ms) MV PHT 60.00 ms Left Ventricle Left atrium is mildly enlarged, left ventricle is normal size, mild concentric left ventricular hypertrophy, visually estimated ejection fraction 55% with no regional wall motion abnormality, grade 1 diastolic dysfunction seen without tissue Doppler evidence of raise left atrial pressure. Right Ventricle Right atrium and right ventricle are mildly enlarged with normal contractility. Aortic Valve Aortic valve is minimally thickened and fibrosed, there is no aortic stenosis or aortic insufficiency. Mitral Valve Mitral valve grossly normal, there is trace mitral regurgitation. Tricuspid Valve Tricuspid grossly normal, there is trace tricuspid regurgitation, tricuspid regurgitation jet velocity is inadequate for calculation of the right ventricular systolic pressure. Pulmonic Valve Pulmonic valve is poorly visualized. Great Vessels Aortic root is normal size. Inferior vena cava is normal size with normal inspiratory collapse. Pericardium No significant pericardial effusion noted. Conclusion 1. Mild biatrial enlargement, normal left ventricular size, mild concentric left ventricular hypertrophy, visually estimated ejection fraction 55% with no regional wall motion abnormality, grade 1 diastolic dysfunction seen without tissue Doppler evidence of raise left atrial pressure. 2. Trace mitral and tricuspid regurgitation. 3. No significant pericardial effusion. 4. Inferior vena cava is normal size with normal inspiratory collapse. Electronically signed by : Moe Boyd MD 01/20/2022 15:08:04
== END ==
PROVIDERS: PCP Emergency Medicine; Visit Provider Nurse Practitioner Family
DX: G47.33 Obstructive sleep apnea (adult) (pediatric) (principal); I10 Essential (primary) hypertension; J44.9 Chronic obstructive pulmonary disease, unspecified; K21.9 Gastro-esophageal reflux disease without esophagitis; R06.00 Dyspnea, unspecified; R07.89 Other chest pain; R60.9 Edema, unspecified; Z72.0 Tobacco use
CPT/HCPCS: 78452; 93017; 93306; A9502; J2785

== ENCOUNTER → 2022-03-25 11:20 | Outpatient (CLI) | payer MEDICARE, MEDICAID, SELFPAY ==
[2022-03-25 18:17] LABS: Amphetamine/Metha Screen,Urine Negative ng/ml (<1000)
[2022-03-25 18:18] LABS: Barbiturates Screen,Urine Negative ng/ml (<200)
[2022-03-25 18:20] LABS: Benzodiazepines Screen,Urine Negative ng/ml (<200); Cannabinoid Screen,Urine Positive ng/ml (<50)
[2022-03-25 18:21] LABS: Cocaine Screen,Urine Negative ng/ml (<300); Methadone Screen,Urine Negative ng/ml (<300)
[2022-03-25 18:22] LABS: Opiate Screen,Urine Positive ng/ml (<300)
[2022-03-25 18:23] LABS: Phencyclidine Screen,Urine Negative ng/ml (<25)
== END ==
PROVIDERS: PCP Emergency Medicine; Visit Provider Emergency Medicine
DX: M54.12 Radiculopathy, cervical region (principal)
CPT/HCPCS: 80305

== ENCOUNTER → 2022-07-22 18:24 | Outpatient (CLI) | payer MEDICARE, MEDICAID, SELFPAY ==
[2022-07-22 18:36] LABS: Amphetamine/Metha Screen,Urine Negative ng/ml (<1000)
[2022-07-22 18:37] LABS: Barbiturates Screen,Urine Negative ng/ml (<200)
[2022-07-22 18:38] LABS: Benzodiazepines Screen,Urine Negative ng/ml (<200)
[2022-07-22 18:39] LABS: Cannabinoid Screen,Urine Positive ng/ml (<50)
[2022-07-22 18:40] LABS: Cocaine Screen,Urine Negative ng/ml (<300); Methadone Screen,Urine Negative ng/ml (<300)
[2022-07-22 18:41] LABS: Opiate Screen,Urine Positive ng/ml (<300)
[2022-07-22 18:42] LABS: Phencyclidine Screen,Urine Negative ng/ml (<25)
== END ==
PROVIDERS: PCP Emergency Medicine; Visit Provider Emergency Medicine
DX: M54.16 Radiculopathy, lumbar region (principal)
CPT/HCPCS: 80305

== ENCOUNTER → 2022-08-24 14:40 | Outpatient (CLI) | payer MEDICARE, MEDICAID, SELFPAY ==
[2022-08-24 19:12] LABS: Basophils # 0.1 K/mm3 (0-0.2); Basophils % 0.9 % (0.1-2.0); Eosinophils # 0.3 K/mm3 (0.0-0.4); Eosinophils % 3.3 % (0.1-12.0); Hematocrit 36.4 % (37.0-47.0); Hemoglobin 11.6 g/dL (12.2-16.2); Lymphocytes # 2.5 K/mm3 (0.7-4.5); Lymphocytes % 24.1 % (10-50); Mean Corpuscular HGB Conc 31.7 g/dL (31.8-35.4); Mean Corpuscular Hemoglobin 34.7 pg (27.0-31.2); Mean Corpuscular Volume 109.2 fl (81-99); Mean Platelet Volume 8.8 fl (7.4-10.4); Monocytes # 0.7 K/mm3 (0.1-1.0); Neutrophils # 6.6 K/mm3 (1.8-7.8); Neutrophils % 64.6 % (37.0-80.0); Platelet Count 631 K/mm3 (142-424); Red Blood Count 3.33 M/mm3 (4.20-5.40); Red Cell Distribution Width 15.7 % (11.5-17.5); White Blood Count 10.3 K/mm3 (4.8-10.8)
[2022-08-24 19:19] LABS: Alanine Aminotransferase 33 U/L (12-78); Albumin Level 3.4 g/dl (3.5-5.0); Albumin/Globulin Ratio 1.3 (1.1-1.8); Alkaline Phosphatase 74 U/L (38-126); Aspartate Amino Transferase 33 U/L (14-36); Blood Urea Nitrogen 15 mg/dl (7-17); Calcium 8.9 mg/dl (8.4-10.2); Carbon Dioxide 33 mmol/L (22.0-30.0); Chloride 97 mmol/L (98-107); Cholesterol 164 mg/dl (140-200); Estimated Glomerular Filt Rate 74 ml/min (>60); GFR (African American) 90 ML/MIN (>60); Globulin 2.7 g/dL (1.3-3.2); Glucose 122 mg/dl (74-100); HDL Cholesterol 33 mg/dl (40-60); Potassium 5.5 mmoL/L (3.5-5.1); Total Protein,Serum 6.1 g/dl (6.3-8.2); Triglycerides 173 mg/dl (30-150); VLDL Cholesterol 35 mg/dL (0-40)
[2022-08-24 19:23] LABS: Bilirubin,Total < 0.1 mg/dl (0.2-1.3)
[2022-08-24 19:30] LABS: Direct LDL Cholesterol 97.42 mg/dL (100-129)
[2022-08-24 19:36] LABS: 25-OH Vitamin D, Total 21.9 ng/mL (30-100)
[2022-08-24 19:39] LABS: Free T4 (Free Thyroxine) 1.43 ng/dl (0.78-2.19)
[2022-08-24 19:51] LABS: Thyroid Stimulating Hormone 3.11 uIU/mL (0.465-4.68)
[2022-08-24 19:59] LABS: Anion Gap 13.5 mEq/L (5-15); Sodium 138 mmol/L (136-145)
== END ==
PROVIDERS: PCP Emergency Medicine; Visit Provider Emergency Medicine
DX: E66.3 Overweight (principal); F41.9 Anxiety disorder, unspecified; E55.9 Vitamin D deficiency, unspecified; Z68.26 Body mass index [BMI] 26.0-26.9, adult
CPT/HCPCS: 80053; 80061; 82306; 84439; 84443; 85025

== ENCOUNTER → 2022-11-02 16:45 | Outpatient (CLI) | payer MEDICARE, MEDICAID, SELFPAY | LOC: LAB 16:46 → LAB.DROPOF 16:49 | PROVIDERS: PCP Otolaryngology; Visit Provider Otolaryngology | DX: H60.92 Unspecified otitis externa, left ear (principal); H72.92 Unspecified perforation of tympanic membrane, left ear | CPT/HCPCS: 87070; 87077; 87186 ==

== ENCOUNTER → 2022-11-16 11:28 | Outpatient (CLI) | payer MEDICARE, MEDICAID, SELFPAY ==
[2022-11-15 15:58] LABS: Amphetamine/Metha Screen,Urine Negative ng/ml (<1000); Barbiturates Screen,Urine Negative ng/ml (<200)
[2022-11-15 15:59] LABS: Benzodiazepines Screen,Urine Positive ng/ml (<200)
[2022-11-15 16:00] LABS: Cannabinoid Screen,Urine Positive ng/ml (<50); Cocaine Screen,Urine Negative ng/ml (<300)
[2022-11-15 16:01] LABS: Methadone Screen,Urine Negative ng/ml (<300)
[2022-11-15 16:02] LABS: Opiate Screen,Urine Positive ng/ml (<300); Phencyclidine Screen,Urine Negative ng/ml (<25)
== END ==
PROVIDERS: PCP Emergency Medicine; Visit Provider Emergency Medicine
DX: M54.16 Radiculopathy, lumbar region (principal)
CPT/HCPCS: 80305

== ENCOUNTER → 2022-12-16 14:58 | Outpatient (CLI) | payer MEDICARE, MEDICAID, SELFPAY ==
--- NOTE | 2022-12-16 14:58 | CT_ITS ---
FINAL REPORT TECHNIQUE: Thin section axial CT images of the facial bones and sinuses were obtained without contrast. Coronal reformatted images were also obtained. This study was performed with techniques to keep radiation doses as low as reasonably achievable, (ALARA). Individualized dose reduction techniques using automated exposure control or adjustment of mA and/or kV according to the patient's size were employed. CLINICAL HISTORY: sinusitis, ear infection x2 wks ago FINDINGS: CT SINUSES There is mucosal thickening of the bilateral maxillary sinuses, left greater than right, measuring up to 7 mm. There are no air-fluid levels. The remaining paranasal sinuses are clear. The ostiomeatal units have an unremarkable appearance. There is nasal septal deviation to the right measuring 6 mm. No fracture or acute bony abnormality is identified. IMPRESSION: Mild bilateral maxillary sinusitis. Reviewed, Interpreted and Dictated by Giorgi Souza MD Transcribed by Alyssa Vernon Authenticated and [facility]
== END ==
PROVIDERS: PCP Emergency Medicine; Visit Provider Otolaryngology
DX: J32.8 Other chronic sinusitis (principal)
CPT/HCPCS: 70486

== ENCOUNTER → 2023-01-13 15:29 | Outpatient (CLI) | payer MEDICARE, MEDICAID, SELFPAY ==
[2023-01-13 14:39] LABS: Amphetamine/Metha Screen,Urine Negative ng/ml (<1000)
[2023-01-13 14:40] LABS: Barbiturates Screen,Urine Negative ng/ml (<200)
[2023-01-13 14:41] LABS: Benzodiazepines Screen,Urine Positive ng/ml (<200); Cannabinoid Screen,Urine Positive ng/ml (<50)
[2023-01-13 14:42] LABS: Cocaine Screen,Urine Negative ng/ml (<300); Methadone Screen,Urine Negative ng/ml (<300)
[2023-01-13 14:43] LABS: Opiate Screen,Urine Positive ng/ml (<300)
[2023-01-13 14:44] LABS: Phencyclidine Screen,Urine Negative ng/ml (<25)
== END ==
PROVIDERS: PCP Emergency Medicine; Visit Provider Emergency Medicine
DX: M54.16 Radiculopathy, lumbar region (principal)
CPT/HCPCS: 80305

== ENCOUNTER → 2023-03-08 11:34 | Outpatient (CLI) | payer MEDICARE, MEDICAID, SELFPAY | PROVIDERS: PCP Emergency Medicine; Visit Provider Emergency Medicine | DX: M54.16 Radiculopathy, lumbar region (principal) ==

== ENCOUNTER → 2023-03-08 13:25 | Outpatient (CLI) | payer MEDICARE, MEDICAID, SELFPAY ==
[2023-03-08 16:23] LABS: Amphetamine/Metha Screen,Urine Negative ng/ml (<1000); Barbiturates Screen,Urine Negative ng/ml (<200)
[2023-03-08 16:24] LABS: Benzodiazepines Screen,Urine Positive ng/ml (<200); Cannabinoid Screen,Urine Positive ng/ml (<50)
[2023-03-08 16:25] LABS: Cocaine Screen,Urine Negative ng/ml (<300)
[2023-03-08 16:26] LABS: Methadone Screen,Urine Negative ng/ml (<300); Opiate Screen,Urine Positive ng/ml (<300)
[2023-03-08 16:27] LABS: Phencyclidine Screen,Urine Negative ng/ml (<25)
== END ==
PROVIDERS: PCP Emergency Medicine; Visit Provider Emergency Medicine
DX: M54.16 Radiculopathy, lumbar region (principal)
CPT/HCPCS: 80305

== ENCOUNTER → 2023-03-10 14:21 | Outpatient (CLI) | payer MEDICARE, MEDICAID, SELFPAY ==
[2023-03-10 14:44] LABS: Basophils # 0.1 K/mm3 (0-0.2); Basophils % 0.9 % (0.1-2.0); Eosinophils # 0.2 K/mm3 (0.0-0.4); Eosinophils % 3.2 % (0.1-12.0); Hematocrit 40.9 % (37.0-47.0); Hemoglobin 13.1 g/dL (12.2-16.2); Lymphocytes # 3.3 K/mm3 (0.7-4.5); Lymphocytes % 47.2 % (10-50); Mean Corpuscular HGB Conc 32.1 g/dL (31.8-35.4); Mean Corpuscular Hemoglobin 31.9 pg (27.0-31.2); Mean Corpuscular Volume 99.6 fl (81-99); Mean Platelet Volume 7.6 fl (7.4-10.4); Monocytes # 0.5 K/mm3 (0.1-1.0); Monocytes % 6.5 % (1.7-9.3); Neutrophils # 2.9 K/mm3 (1.8-7.8); Neutrophils % 42.1 % (37.0-80.0); Platelet Count 340 K/mm3 (142-424); Red Blood Count 4.11 M/mm3 (4.20-5.40); Red Cell Distribution Width 13.7 % (11.5-17.5)
[2023-03-10 15:01] LABS: Chloride 98 mmol/L (98-107)
[2023-03-10 15:02] LABS: Potassium 4.1 mmoL/L (3.5-5.1); Sodium 135 mmol/L (136-145)
[2023-03-10 15:04] LABS: Alanine Aminotransferase 26 U/L (12-78); Aspartate Amino Transferase 25 U/L (14-36); Blood Urea Nitrogen 13 mg/dl (7-17); Estimated Glomerular Filt Rate 65 ml/min (>60); GFR (African American) 79 ML/MIN (>60)
[2023-03-10 15:05] LABS: Albumin Level 3.9 g/dl (3.5-5.0); Albumin/Globulin Ratio 1.5 (1.1-1.8); Alkaline Phosphatase 85 U/L (38-126); Anion Gap 7.1 mEq/L (5-15); Bilirubin,Total 0.3 mg/dl (0.2-1.3); Calcium 8.8 mg/dl (8.4-10.2); Carbon Dioxide 34 mmol/L (22.0-30.0); Globulin 2.6 g/dL (1.3-3.2); Glucose 94 mg/dl (74-100); Total Protein,Serum 6.5 g/dl (6.3-8.2)
== END ==
PROVIDERS: PCP Emergency Medicine; Visit Provider Otolaryngology
DX: M54.16 Radiculopathy, lumbar region (principal); Z01.818 Encounter for other preprocedural examination
CPT/HCPCS: 36415; 80053; 85025

== ENCOUNTER → 2023-05-02 13:24 | Outpatient (CLI) | payer MEDICARE, MEDICAID, SELFPAY ==
[2023-05-02 13:05] LABS: Amphetamine/Metha Screen,Urine Negative ng/ml (<1000)
[2023-05-02 13:06] LABS: Benzodiazepines Screen,Urine Negative ng/ml (<200)
[2023-05-02 13:07] LABS: Barbiturates Screen,Urine Negative ng/ml (<200)
[2023-05-02 13:09] LABS: Cannabinoid Screen,Urine Positive ng/ml (<50); Cocaine Screen,Urine Negative ng/ml (<300)
[2023-05-02 13:10] LABS: Methadone Screen,Urine Negative ng/ml (<300)
[2023-05-02 13:11] LABS: Opiate Screen,Urine Positive ng/ml (<300); Phencyclidine Screen,Urine Negative ng/ml (<25)
== END ==
PROVIDERS: PCP Emergency Medicine; Visit Provider Emergency Medicine
DX: M54.16 Radiculopathy, lumbar region (principal)
CPT/HCPCS: 80305

== ENCOUNTER 2023-05-31 10:14 | Day surgery (SDC) | payer MEDICARE, MEDICAID, SELFPAY ==
--- NOTE | 2023-05-03 08:08 | SUR.PREOP ---
pt called and stated she had a missed call yesterday and when she called back it was 5:00pm. pt states she has drank 2 cups of coffee with creamer and sugar, first cup was at 7:30am. Candido Stiles RN spoke with Dr. Berg and Yvon Mason CRNA- they agreed to cancel surgery today and the clinic will be in touch with patient to set up a new date. pt verbalized understanding.
[2023-05-31] VITALS (10 sets, daily range): BP systolic 115–151; BP diastolic 80–99; PULSE 65–94; RESP 16; TEMP 36.1–43; O2SAT 91–95; BMI 27.2
--- NOTE | 2023-05-31 12:47 | EXP.ANES.CKL ---
[facility] Disclaimer: The information contained in this section may have been updated after the patient was seen, as this information can be updated by other users. Medical History Acute left otitis media Chest pain COPD (chronic obstructive pulmonary disease) Dyspnea Edema GERD (gastroesophageal reflux disease) Hypertension Hypothyroidism Lumbar radiculopathy Otitis externa of left ear Perforation of left tympanic membrane Sinusitis Tobacco use Surgical History (Updated 05/31/23 @ 10:48 by Kelsey Mckeon RN) H/O tubal ligation History of thyroidectomy Family History (Updated 05/31/23 @ 10:49 by Kelsey Mckeon RN) Grandmother Family history of cancer Mother Family history of cancer Father Family history of myocardial infarction Social History (Updated 05/31/23 @ 10:50 by Kelsey Mckeon RN) Smoking Status: Current every day smoker tobacco type: cigarettes packs per day: 1 second hand exposure: Yes alcohol intake: never counseling provided: provider counseling substance use type: marijuana current occupational status: disabled Travel in the last 8 weeks: None household members: family housing: house [facility] Anesthesia Checklist Patient Identification Patient Identification: Arm Band Structural Data Admitted From: Home Planned Operative Procedure/s: Nasal Septoplasty with FESS Consent for Planned Operative Procedure(s) Verified: Yes Verified Documents: Surgical Consent and History and Physical NPO Status Verified Time NPO: 00:00 Additional verifications Anesthesia Reactions: No Hx Blood Transfusions: No Blood Transfusion Reaction: No Airway Assessment C-Spine Mobility Assessed: Yes TMJ Mobility Assessed: Yes Dentition: Edentulous Neurological Assessment Level of Consciousness: Awake and Alert Anesthesia Plan Anesthesia Risk discussed: Yes Anesthesia Plan: Verified ASA Class: III Anesthesia Type: General
--- NOTE | 2023-05-31 13:40 | P.OP_ITS ---
Date of procedure: 05/31/23 Pre-op Diagnosis:: Chronic sinusitis, deviated septum Post-op Diagnosis:: Chronic sinusitis, deviated septum Procedure performed:: Septoplasty, functional endoscopic sinus surgery with nasal endoscopy and bilateral anterior ethmoidectomy, nasal endoscopy and bilateral maxillary antrostomies Surgeon:: Brian Berg MD [facility] [employer] INSPECTOR:: Eleazar Mason Anesthesia: GETA Estimated blood loss (mL): 50 Operative findings:: Severely deviated septum right, turbinate hypertrophy mild, chronic anterior ethmoid and maxillary sinusitis bilaterally with [facility] obstruction Operative note:: The patient was brought to the operating room and after adequate general anesthesia the nose was draped in the usual sterile fashion and 1% lidocaine with epinephrine used to locally infiltrate the septum, and middle meatuses and using a surgery sinus endoscope the left middle meatus is visualized the middle turbinate was medialized and uncinectomy performed with the pediatric backbiter and microdebrider clearing the nasofrontal tract and infundibulum. The natural ostium to the maxillary sinus was then enlarged and cleared of obstructing polypoid disease. Anterior ethmoidectomy was then performed working through the ethmoid bulla to clear disease polypoid mucosa in the anterior ethmoid while sparing normal mucosa posteriorly. Nova pack was placed in the left middle meatus and attention drawn to the right side. In a similar fashion, uncinectomy was performed and nasofrontal tract cleared. Infundibulum opened. The natural ostium the maxillary sinus was then enlarged and cleared of obstructing polyp disease. Anterior ethmoidectomy was again performed sparing nor mucosa posteriorly. Nova pack was placed in the left middle meatus and the right middle meatus and then attention drawn to the septum. Right hemitransfixion incision was made and mucosal flaps elevated off the bony and cartilaginous septum and then deviated portion of the vomer and perpendicular plate the ethmoid posteriorly was resected and the cartilaginous septum mobilized and brought back up over the midline maxillary crest then the mucosal flaps reapproximated and held in place with a 4-0 plain gut horizontal mattress suture and hemitransfixion incision closed with 4-0 chromic. Avilez splints were then placed on the septum and secured to the columella using 3-0 nylon and the procedure concluded. All counts correct. Blood loss less than 50 mL and patient was sent to recovery in stable condition. Condition: stable Disposition: PACU Complications:: None
--- NOTE | 2023-05-31 13:59 | P.PNANES_ITS ---
[facility] Anesthesia Record Part I Anesthesia Record I Intake, IV Amount: 1,000 Estimated blood loss (mL): 5 Urine output (mL): 0 Blood Products used (#): none Blood Pressure: 124/92 SaO2: 92 Pulse Rate: 94 Respiratory Rate: 16 Temperature: 97 F Patient is:: Drowsy and Stable Stable to PACU at:: 13:55
[2023-06-01 07:16] VITALS: BP 142/89; PULSE 76; TEMP 36.6
--- NOTE | 2023-06-01 07:16 | EXP.ANES.II ---
[facility] Anesthesia Record Part II Anesthesia Record Part II Discharge Time: 14:25 Destination: Surgical Day Care (OP Surgery) PACU nurse assessment reviewed?: Yes Patient Condition:: Good Anesthesia Complications:: None Swallowing reflex intact?: Yes Cyanosis?: No Blood Pressure: 142/89 Pulse Rate: 76 Temperature: 97.8 F Mental Status: Alert & Oriented Pain level:: 0 Nausea and/or vomitting:: None Intake, IV Amount: 0
== END 2023-05-31 15:10 | disposition home or self-care (01) ==
PROVIDERS: PCP Emergency Medicine; Visit Provider Otolaryngology
PROC: (CPT 30520; principal; 2023-05-31 13:30)
DX: J34.2 Deviated nasal septum (principal); J32.9 Chronic sinusitis, unspecified
CPT/HCPCS: 30520; 31254; 31267; 88305; 96374; J2405

== ENCOUNTER 2023-06-28 09:47 | Emergency (ER) | payer MEDICARE, MEDICAID, SELFPAY ==
[2023-06-28] VITALS (7 sets, daily range): BP systolic 161–176; BP diastolic 100–118; PULSE 63–82; RESP 18–19; TEMP 36.5–36.8; O2SAT 96–100; BMI 26.5
--- NOTE | 2023-06-28 10:16 | PC.NURSE ---
DR KUMAR AT BEDSIDE
[2023-06-28 10:17] LABS: Microscopic, Urine URINE MICROSCOPIC (MICROSCOPIC)
[2023-06-28 10:25] LABS: Basophils # 0.1 K/mm3 (0-0.2); Basophils % 0.6 % (0.1-2.0); Eosinophils # 0.3 K/mm3 (0.0-0.4); Hematocrit 43.4 % (37.0-47.0); Hemoglobin 13.8 g/dL (12.2-16.2); Lymphocytes # 1.9 K/mm3 (0.7-4.5); Lymphocytes % 23.2 % (10-50); Mean Corpuscular HGB Conc 31.8 g/dL (31.8-35.4); Mean Corpuscular Hemoglobin 31.5 pg (27.0-31.2); Mean Corpuscular Volume 98.9 fl (81-99); Mean Platelet Volume 8.4 fl (7.4-10.4); Monocytes # 0.4 K/mm3 (0.1-1.0); Monocytes % 5.1 % (1.7-9.3); Neutrophils # 5.7 K/mm3 (1.8-7.8); Neutrophils % 68.1 % (37.0-80.0); Platelet Count 418 K/mm3 (142-424); Red Blood Count 4.39 M/mm3 (4.20-5.40); Red Cell Distribution Width 13.5 % (11.5-17.5); White Blood Count 8.3 K/mm3 (4.8-10.8)
--- NOTE | 2023-06-28 10:26 | HMH.EDGENADL ---
Discharge Plan Disposition Patient Disposition: Left Against Medical Advice Chief Complaint: Abdominal Pain Prescriptions Prescriptions: No Action escitalopram oxalate 10 mg tablet 10 mg PO DAILY oxycodone 10 mg tablet 10 mg PO QID Qty: 120 0RF cyclobenzaprine 10 mg tablet See Rx Instructions .ROUTE .COMPLEX Qty: 90 0RF Dose Instruction: TAKE 1 TABLET BY MOUTH THREE TIMES A DAY Rx Instructions: TAKE 1 TABLET BY MOUTH THREE TIMES A DAY carvedilol 12.5 mg tablet See Rx Instructions .ROUTE .COMPLEX Rx Instructions: TAKE 1 TABLET BY MOUTH TWO TIMES A DAY omeprazole 40 mg capsule,delayed release(DR/EC) 40 mg PO BID aspirin [Adult Aspirin Regimen] 81 mg tablet,delayed release (DR/EC) 81 mg PO DAILY Hold Instructions: Resume on 06/05/23. levothyroxine 75 mcg tablet See Rx Instructions .ROUTE .COMPLEX Rx Instructions: TAKE 1 TABLET BY MOUTH EVERY DAY losartan-hydrochlorothiazide 100-25 mg tablet See Rx Instructions .ROUTE .COMPLEX Rx Instructions: TAKE 1 TABLET BY MOUTH TWO TIMES A DAY gabapentin 800 mg tablet 800 mg PO Q8H Rx Instructions: one 800mg tablet q8h ropinirole 0.5 mg tablet See Rx Instructions .ROUTE .COMPLEX Rx Instructions: TAKE 1 TABLET BY MOUTH EVERY DAY fluticasone propionate 50 mcg/actuation spray,suspension See Rx Instructions .ROUTE .COMPLEX Hold Instructions: Resume on 06/07/23. Rx Instructions: SPRAY 1 SPRAY IN EACH NOSTRIL TWO TIMES A DAY NEEDED FOR ALLERGIES diazepam [Valium] 5 mg tablet 5 mg PO TID bupropion HCl 200 mg tablet sustained-release 12 hr 200 mg PO BID diclofenac sodium 1 % gel See Rx Instructions .ROUTE .COMPLEX Rx Instructions: APPLY 2 GRAMS TO ELBOW,WRIST OR ENTIRE HAND FOUR TIMES A DAY fluticasone furoate-vilanterol [Breo Ellipta] 100-25 mcg/dose blister with device See Rx Instructions .ROUTE .COMPLEX Rx Instructions: TAKE 1 PUFF BY MOUTH EVERY DAY cephalexin 500 mg capsule 500 mg PO TID Qty: 30 0RF promethazine 12.5 mg tablet 12.5 mg PO Q6H PRN (Reason: nausea and vomiting) Qty: 14 0RF Referrals Follow up/Referrals: Dashawn Magdaleno MD [Primary Care Provider] - See instructions Clinical Impressions Clinical Impression: Abdominal pain, diffuse, Nausea & vomiting Instructions Patient Instructions: DI for Acute Abdominal Pain Discharge ED Provider: Leatha Ivory General Adult HPI General Chief complaint: Abdominal Pain Stated complaint: abd pain, chills, vomiting, diarrhea Time Seen by Provider: 06/28/23 10:10 Mode of Arrival: Ambulatory Limitations: No Limitations Description of Symptoms (Recalled from ER Triage Doc. by RN): PT WITH C/O DIFFUSE ABDOMINAL PAIN AFTER EATING BEANIE WEENIES AT 0400, PAIN STARTED ABOUT 0500. REPORTS 1 EPISODE OF EMESIS, SOFT BOWEL MOVEMENT History of Present Illness HPI narrative: Patient is a 58-year-old very poor historian who presents today with diffuse abdominal discomfort and some nausea and vomiting. She states she did not have any diarrhea no fevers or chills no chest pain no shortness of breath. She is unable to articulate exactly where her abdomen hurts and points to the entire region of her abdomen. She denies any blood in her emesis. No melena. No history of any pancreatic problems no history of heavy drinking. No history of any biliary colic or postprandial pain associated with this. No history of diverticulitis or any other colonic pathology. Related Data Home Medications Medication Instructions Recorded Confirmed escitalopram oxalate 10 mg tablet 10 mg PO DAILY mood 05/02/23 05/31/23 aspirin 81 mg tablet,delayed 81 mg PO DAILY heart health 05/31/23 05/31/23 release (Adult Aspirin Regimen) bupropion HCl 200 mg tablet,12 hr 200 mg PO BID Anxiety 05/31/23 05/31/23 sustained-release carvedilol 12.5 mg tablet See Rx Instructions .Ro
--- NOTE | 2023-06-28 10:35 | PC.NURSE ---
Pt's sat's are staying <90% after morphine. Applied 2LMP NC to aid in oxygenation. MD notified. Pt reports decrease in pain
[2023-06-28 10:59] LABS: Appearance,Urine CLEAR (Clear); Bilirubin,Urine Negative (Negative); Blood, Urine Negative (Negative); Color,Urine YELLOW (Yellow); Glucose,Urine (UA) Negative (Negative); Ketones,Urine Negative (Negative); Leukocyte Esterase,Urine Negative (Negative); Nitrate,Urine Negative (Negative); PH,Urine 8.5 (5.0-8.5); Protein,Urine TRACE (Negative); Specific Gravity, Urine 1.015 (1.005-1.030); Urobilinogen,Urine 0.2 EU/dl (0.2)
--- NOTE | 2023-06-28 11:00 | PC.NURSE ---
Called Lab to check on status of CMP, they report d/t duplicate there was a delay, it is running now. Rounded on pt, she is still resting comfortably. at bedside.
[2023-06-28 11:26] LABS: Lipase 107 U/L (23-300)
--- NOTE | 2023-06-28 11:40 | PC.NURSE ---
Pt ct scan via wheelchair
[2023-06-28 11:42] LABS: Bacteria,Urine Trace /lpf; Squamous Epithelial Cell,Urine 20-50 #/hpf (0-5)
--- NOTE | 2023-06-28 12:15 | PC.NURSE ---
Patient called out stating somebody come in here and get this thing out of my arm . I let her know I was coming, she yelled out Get in here before I rip this thing of my arm . I asked what was wrong, apologized for the wait and that we were waiting on ct scan results. Patient states well i don't care, I am going home . I asked if the she would wait to speak with the provider and she refused. I removed her IV from her Left AC and applied gauze and coban. I stated if anything came back critical she may need to come back and get another IV placed. She stated, Well then I'll do that . Patient's in the room and reports he will be driving her home. I asked if the pain medicine had helped and she stated it did. She reports I take pain medicine at home Dr. Magdaleno gives me . Dr. Ivory was notified of these events. Patient signed AMA form and her signed it as well since he was driving her home.
[2023-06-28 13:22] LABS: Alanine Aminotransferase 24 U/L (12-78); Albumin Level 4.4 g/dl (3.5-5.0); Albumin/Globulin Ratio 1.3 (1.1-1.8); Alkaline Phosphatase 123 U/L (38-126); Anion Gap 10.6 mEq/L (5-15); Aspartate Amino Transferase 30 U/L (14-36); Bilirubin,Total 0.4 mg/dl (0.2-1.3); Blood Urea Nitrogen 14 mg/dl (7-17); Calcium 9.2 mg/dl (8.4-10.2); Carbon Dioxide 31 mmol/L (22.0-30.0); Chloride 102 mmol/L (98-107); Creatinine Clearance Estimated 92 mL/min (50-200); Estimated Glomerular Filt Rate 65 ml/min (>60); GFR (African American) 78 ML/MIN (>60); Globulin 3.5 g/dL (1.3-3.2); Glucose 136 mg/dl (74-100); Potassium 3.6 mmoL/L (3.5-5.1); Sodium 140 mmol/L (136-145); Total Protein,Serum 7.9 g/dl (6.3-8.2)
== END 2023-06-28 12:21 | disposition left against medical advice (07) ==
PROVIDERS: Emergency Provider Student in an Organized Health Care Education/Training Program; PCP Emergency Medicine
DX: R10.9 Unspecified abdominal pain (principal); R11.2 Nausea with vomiting, unspecified; J44.9 Chronic obstructive pulmonary disease, unspecified; K21.9 Gastro-esophageal reflux disease without esophagitis; I10 Essential (primary) hypertension; E03.9 Hypothyroidism, unspecified; M54.16 Radiculopathy, lumbar region; F17.210 Nicotine dependence, cigarettes, uncomplicated
CPT/HCPCS: 74177; 80053; 81001; 83690; 85025; 96361; 96374; 96375; 99285; J2405

== ENCOUNTER → 2023-06-30 11:30 | Outpatient (CLI) | payer MEDICARE, MEDICAID, SELFPAY ==
[2023-06-30 18:05] LABS: Adenovirus,PCR Not Detected (NotDetected); Bordetella Pertussis Not Detected (NotDetected); Chlamydophila Pneumoniae, PCR Not Detected (NotDetected); Coronavirus 19, PCR Not Detected (NotDetected); Coronavirus 229E Not Detected (NotDetected); Coronavirus NL63 Not Detected (NotDetected); Coronavirus OC43 Not Detected (NotDetected); Coronovirus HKU1,PCR Not Detected (NotDetected); Human Metapneumovirus Not Detected (NotDetected); Influenza A, PCR Not Detected (NotDetected); Influenza AH1, 2009 Not Detected (NotDetected); Influenza AH1, PCR Not Detected (NotDetected); Influenza AH3,PCR Not Detected (NotDetected); Influenza B, PCR Not Detected (NotDetected); Mycoplasma Pneumoniae, PCR Not Detected (NotDetected); Parainfluenza 1, PCR Not Detected (NotDetected); Parainfluenza 2, PCR Not Detected (NotDetected); Parainfluenza 3, PCR Not Detected (NotDetected); Parainfluenza 4, PCR Not Detected (NotDetected); Respiratory Syncytial Virus Not Detected (NotDetected); Rhinovirus/Enterovirus Not Detected (NotDetected)
[2023-06-30 18:34] LABS: Barbiturates Screen,Urine Negative ng/ml (<200)
[2023-06-30 18:35] LABS: Amphetamine/Metha Screen,Urine Negative ng/ml (<1000); Benzodiazepines Screen,Urine Positive ng/ml (<200)
[2023-06-30 18:36] LABS: Methadone Screen,Urine Negative ng/ml (<300)
[2023-06-30 18:37] LABS: Cannabinoid Screen,Urine Positive ng/ml (<50); Cocaine Screen,Urine Negative ng/ml (<300)
[2023-06-30 18:38] LABS: Opiate Screen,Urine Positive ng/ml (<300); Phencyclidine Screen,Urine Negative ng/ml (<25)
== END ==
LOC: LAB.DROPOF 07-01 08:47
PROVIDERS: PCP Emergency Medicine; Visit Provider Emergency Medicine
DX: M54.16 Radiculopathy, lumbar region (principal); R10.9 Unspecified abdominal pain; R11.0 Nausea; Z79.899 Other long term (current) drug therapy; R06.09 Other forms of dyspnea
CPT/HCPCS: 80305; 87581; 87632; 87798

== ENCOUNTER 2023-07-02 09:31 | Emergency (ER) | payer MEDICARE, MEDICAID, SELFPAY ==
[2023-07-02] VITALS (8 sets, daily range): BP systolic 117–168; BP diastolic 73–125; PULSE 65–79; RESP 16–18; TEMP 36.4; O2SAT 98–100; BMI 25.8
--- NOTE | 2023-07-02 09:51 | PC.NURSE ---
Dr. Rios at [facility]
--- NOTE | 2023-07-02 09:54 | CT_ITS ---
PROCEDURE INFORMATION: Exam: CT Abdomen And Pelvis With Contrast Exam date and time: 07/02/2023 10:46 AM Age: 58 years old Clinical indication: Abdominal pain; Epigastric; Additional info: Emmy and ruq pain TECHNIQUE: Imaging protocol: Computed tomography of the abdomen and pelvis with contrast. Radiation optimization: All CT scans at this facility use at least one of these dose optimization techniques: automated exposure control; mA and/or kV adjustment per patient size (includes targeted exams where dose is matched to clinical indication); or iterative reconstruction. Contrast material: ISOVUE; Contrast volume: 75 ml; Contrast route: IV; REPORTING DATA: Count of CT and Cardiac NM exams in prior 12 months: This patient has received [address] and 0 known cardiac nuclear medicine studies in the 12 months prior to the current study. COMPARISON: CR HIPCMLT XR hip LT 2-3V w/pelvis 01/24/2018 2:24 PM FINDINGS: Lungs: Lung bases are clear. Liver: Mild fatty infiltration of liver with small liver cyst right lobe. Gallbladder and bile ducts: Gallbladder is unremarkable. There is mild dilatation of the common bile duct measuring 1 cm in maximum diameter. Pancreas: See Vasculature finding. Spleen: Normal. No splenomegaly. Adrenal glands: Normal. No mass. Kidneys and ureters: Normal. No hydronephrosis. Stomach and bowel: Unremarkable. No obstruction. No mucosal thickening. Appendix: No evidence of appendicitis. Intraperitoneal space: Unremarkable. No free air. No significant fluid collection. Vasculature: Scattered atherosclerotic changes of the abdominal aorta and iliac vessels. No aortic aneurysm. There is a 2.5 cm indistinct and slightly hypodense mass that appears to be arising from the uncinate process of the head of the pancreas interposed between the abdominal aorta and SMA with some small adjacent peripancreatic lymph nodes concerning for pancreatic neoplasm. Main pancreatic duct is not dilated. Lymph nodes: See Vasculature finding. Urinary bladder: Unremarkable as visualized. Reproductive: Unremarkable as visualized. Bones/joints: Unremarkable. No acute fracture. Soft tissues: Unremarkable. IMPRESSION: 1. 2.5 cm indistinct mass believed to be arising from the uncinate process of the pancreas concerning for pancreatic neoplasm. Recommend follow-up nonemergent contrast enhanced MRI exam of the pancreas for further evaluation. 2. Mild dilatation of the common bile duct etiology of which is unclear, possibly long-standing. 3. Small benign-appearing liver cyst.
--- NOTE | 2023-07-02 10:10 | HMH.EDGENADL ---
Discharge Plan Disposition Patient Disposition: Home, Self-Care Condition: Fair Prescriptions Prescriptions: New ondansetron 4 mg tablet,disintegrating 4 mg PO Q8H 4 Days Qty: 12 0RF No Action escitalopram oxalate 10 mg tablet 10 mg PO DAILY diazepam [Valium] 5 mg tablet 5 mg PO TID Qty: 90 1RF gabapentin 800 mg tablet 800 mg PO Q8H Qty: 90 1RF Rx Instructions: one 800mg tablet q8h oxycodone 10 mg tablet 10 mg PO QID Qty: 120 0RF cyclobenzaprine 10 mg tablet See Rx Instructions .ROUTE .COMPLEX Qty: 90 0RF Dose Instruction: TAKE 1 TABLET BY MOUTH THREE TIMES A DAY Rx Instructions: TAKE 1 TABLET BY MOUTH THREE TIMES A DAY carvedilol 12.5 mg tablet See Rx Instructions .ROUTE .COMPLEX Rx Instructions: TAKE 1 TABLET BY MOUTH TWO TIMES A DAY omeprazole 40 mg capsule,delayed release(DR/EC) 40 mg PO BID aspirin [Adult Aspirin Regimen] 81 mg tablet,delayed release (DR/EC) 81 mg PO DAILY Hold Instructions: Resume on 06/05/23. levothyroxine 75 mcg tablet See Rx Instructions .ROUTE .COMPLEX Rx Instructions: TAKE 1 TABLET BY MOUTH EVERY DAY losartan-hydrochlorothiazide 100-25 mg tablet See Rx Instructions .ROUTE .COMPLEX Rx Instructions: TAKE 1 TABLET BY MOUTH TWO TIMES A DAY ropinirole 0.5 mg tablet See Rx Instructions .ROUTE .COMPLEX Rx Instructions: TAKE 1 TABLET BY MOUTH EVERY DAY bupropion HCl 200 mg tablet sustained-release 12 hr 200 mg PO BID diclofenac sodium 1 % gel See Rx Instructions .ROUTE .COMPLEX Rx Instructions: APPLY 2 GRAMS TO ELBOW,WRIST OR ENTIRE HAND FOUR TIMES A DAY fluticasone furoate-vilanterol [Breo Ellipta] 100-25 mcg/dose blister with device See Rx Instructions .ROUTE .COMPLEX Rx Instructions: TAKE 1 PUFF BY MOUTH EVERY DAY Referrals Follow up/Referrals: Dashawn Magdaleno MD [Primary Care Provider] - See instructions Activity Restrictions/Add. Instructions Additional Instructions/Restrictions: Please follow-up with your primary care provider. Please return to the emergency department if you develop any new or worsening symptoms or become concerned for your health. As we discussed, recommend that you use your previously filled oxycodone prescription for pain control. You have also been provided with a prescription for Zofran which you can take every 6 hours as needed for nausea control. Hopefully will be able to follow-up with GI in [place], phone number to call tomorrow is [phone] Contreras. Should you have any new yellowing of the skin, eyes, severe nausea, vomiting despite taking Zofran, severe abdominal pain, abdominal distention, recommend that you return to the emergency department for evaluation. Clinical Impressions Clinical Impression: Mass of head of pancreas, Common bile duct dilatation, Acute epigastric pain Instructions Patient Instructions: DI for Acute Abdominal Pain Discharge ED Provider: Seven Rios I General Adult HPI General Chief complaint: Abdominal Pain Stated complaint: stomach pain Time Seen by Provider: 07/02/23 09:43 Mode of Arrival: Ambulatory Source of Information: Patient Limitations: No Limitations Description of Symptoms (Recalled from ER Triage Doc. by RN): Pt reports upper abd pain intermittent in nature. Pt reports had pain on monday was seen in ER on that date. Pt reports no pain again until upon waking up this morning. Pt also reports nausea. History of Present Illness HPI narrative: Patient is a 58-year-old female with history of COPD, hypertension, hypothyroidism, degenerative disc disease who is presenting to the emergency department with new onset severe abdominal pain this morning. Patient was previously evaluated in the emergency department for abdominal pain, had undergone laboratory work-up but had not yet undergone CT imaging and have left the emergency department AMA.
[2023-07-02 10:14] LABS: Basophils # 0.1 K/mm3 (0-0.2); Basophils % 0.6 % (0.1-2.0); Eosinophils # 0.3 K/mm3 (0.0-0.4); Eosinophils % 3.7 % (0.1-12.0); Hematocrit 42.4 % (37.0-47.0); Hemoglobin 13.5 g/dL (12.2-16.2); Lymphocytes # 2.2 K/mm3 (0.7-4.5); Lymphocytes % 29.9 % (10-50); Mean Corpuscular HGB Conc 31.9 g/dL (31.8-35.4); Mean Corpuscular Hemoglobin 30.8 pg (27.0-31.2); Mean Corpuscular Volume 96.5 fl (81-99); Mean Platelet Volume 8.1 fl (7.4-10.4); Monocytes # 0.5 K/mm3 (0.1-1.0); Monocytes % 6.3 % (1.7-9.3); Neutrophils # 4.3 K/mm3 (1.8-7.8); Neutrophils % 59.5 % (37.0-80.0); Platelet Count 355 K/mm3 (142-424); Red Blood Count 4.39 M/mm3 (4.20-5.40); Red Cell Distribution Width 13.5 % (11.5-17.5); White Blood Count 7.3 K/mm3 (4.8-10.8)
[2023-07-02 10:17] LABS: Microscopic, Urine URINE MICROSCOPIC (MICROSCOPIC)
[2023-07-02 10:18] LABS: Alanine Aminotransferase 19 U/L (12-78); Albumin Level 4.3 g/dl (3.5-5.0); Albumin/Globulin Ratio 1.2 (1.1-1.8); Alkaline Phosphatase 80 U/L (38-126); Anion Gap 10.9 mEq/L (5-15); Aspartate Amino Transferase 28 U/L (14-36); Bilirubin,Total 0.7 mg/dl (0.2-1.3); Blood Urea Nitrogen 19 mg/dl (7-17); Calcium 9.2 mg/dl (8.4-10.2); Carbon Dioxide 32 mmol/L (22.0-30.0); Chloride 100 mmol/L (98-107); Creatinine Clearance Estimated 67 mL/min (50-200); Estimated Glomerular Filt Rate 46 ml/min (>60); GFR (African American) 56 ML/MIN (>60); Globulin 3.6 g/dL (1.3-3.2); Glucose 126 mg/dl (74-100); Lipase 97 U/L (23-300); Potassium 4.9 mmoL/L (3.5-5.1); Sodium 138 mmol/L (136-145); Total Protein,Serum 7.9 g/dl (6.3-8.2)
[2023-07-02 10:18] LABS: Appearance,Urine CLEAR (Clear); Bilirubin,Urine Negative (Negative); Blood, Urine Negative (Negative); Color,Urine YELLOW (Yellow); Glucose,Urine (UA) Negative (Negative); Ketones,Urine Negative (Negative); Leukocyte Esterase,Urine Negative (Negative); Nitrate,Urine Negative (Negative); PH,Urine 7.5 (5.0-8.5); Protein,Urine Negative (Negative); Specific Gravity, Urine 1.015 (1.005-1.030); Urobilinogen,Urine 0.2 EU/dl (0.2)
--- NOTE | 2023-07-02 10:33 | PC.NURSE ---
pt medicated per JAN, lights off in room per pt request for comfort, warm blanket given. Call button in reach
[2023-07-02 10:38] LABS: Bacteria,Urine Trace /lpf; WBC,Urine Occasional #/hpf (0-3)
--- NOTE | 2023-07-02 11:32 | PC.NURSE ---
DAVID MG SPEAKING WITH [facility]
[2023-07-02 11:57] LABS: Lactic Acid 0.7 mmol/L (0.7-2.1)
--- NOTE | 2023-07-02 12:02 | PC.NURSE ---
DAVID MG SPEAKING WITH [facility]
--- NOTE | 2023-07-02 12:41 | PC.NURSE ---
ED SPEAKING WITH [facility]PITAL[facility]
[2023-07-04 11:55] LABS: CA 19-9 97 U/mL (0-35)
== END 2023-07-02 13:38 | disposition home or self-care (01) ==
PROVIDERS: Emergency Provider Emergency Medicine; PCP Emergency Medicine
DX: K86.89 Other specified diseases of pancreas (principal); K83.8 Other specified diseases of biliary tract; E03.9 Hypothyroidism, unspecified; K21.9 Gastro-esophageal reflux disease without esophagitis; F17.210 Nicotine dependence, cigarettes, uncomplicated; J44.9 Chronic obstructive pulmonary disease, unspecified; I10 Essential (primary) hypertension
CPT/HCPCS: 36415; 74177; 80053; 81001; 82378; 83605; 83690; 85025; 86316; 96361; 96374; 96375; 99285; J2405; Q9967

== ENCOUNTER 2023-07-09 03:08 | Emergency (ER) | payer MEDICARE, MEDICAID, SELFPAY ==
[2023-07-09 03:17] VITALS: BP 175/110; PULSE 66; RESP 21; TEMP 36.4; O2SAT 99; BMI 29.1
--- NOTE | 2023-07-09 03:34 | PC.NURSE ---
Dr. Mayberry at BS
[2023-07-09 03:35] LABS: Basophils # 0.1 K/mm3 (0-0.2); Basophils % 0.8 % (0.1-2.0); Eosinophils # 0.3 K/mm3 (0.0-0.4); Hematocrit 41.1 % (37.0-47.0); Hemoglobin 13.3 g/dL (12.2-16.2); Lymphocytes # 3.4 K/mm3 (0.7-4.5); Lymphocytes % 39.2 % (10-50); Mean Corpuscular HGB Conc 32.4 g/dL (31.8-35.4); Mean Corpuscular Hemoglobin 31.7 pg (27.0-31.2); Mean Corpuscular Volume 97.8 fl (81-99); Mean Platelet Volume 8.1 fl (7.4-10.4); Monocytes # 0.6 K/mm3 (0.1-1.0); Monocytes % 7.3 % (1.7-9.3); Neutrophils # 4.3 K/mm3 (1.8-7.8); Neutrophils % 49.7 % (37.0-80.0); Platelet Count 345 K/mm3 (142-424); Red Blood Count 4.21 M/mm3 (4.20-5.40); Red Cell Distribution Width 13.7 % (11.5-17.5); White Blood Count 8.6 K/mm3 (4.8-10.8)
[2023-07-09 03:39] VITALS: BP 167/105; PULSE 76; O2SAT 98
[2023-07-09 03:43] LABS: Lipase 132 U/L (23-300)
[2023-07-09 03:44] LABS: Alanine Aminotransferase 22 U/L (12-78); Albumin Level 4.3 g/dl (3.5-5.0); Albumin/Globulin Ratio 1.3 (1.1-1.8); Alkaline Phosphatase 103 U/L (38-126); Anion Gap 11.3 mEq/L (5-15); Aspartate Amino Transferase 29 U/L (14-36); Bilirubin,Total 0.2 mg/dl (0.2-1.3); Blood Urea Nitrogen 16 mg/dl (7-17); Calcium 9.3 mg/dl (8.4-10.2); Carbon Dioxide 31 mmol/L (22.0-30.0); Chloride 101 mmol/L (98-107); Creatinine Clearance Estimated 74 mL/min (50-200); Estimated Glomerular Filt Rate 51 ml/min (>60); GFR (African American) 62 ML/MIN (>60); Globulin 3.4 g/dL (1.3-3.2); Glucose 132 mg/dl (74-100); Potassium 3.3 mmoL/L (3.5-5.1); Sodium 140 mmol/L (136-145); Total Protein,Serum 7.7 g/dl (6.3-8.2)
[2023-07-09 03:45] LABS: Lactic Acid 1.1 mmol/L (0.7-2.1)
--- NOTE | 2023-07-09 03:48 | PC.NURSE ---
patient yelling,cursing and hitting wall and equipment in room. immanuel hodgsonrisk management intern nurse at bedside along with .
--- NOTE | 2023-07-09 03:49 | CT_ITS ---
PROCEDURE INFORMATION: Exam: CT Abdomen And Pelvis With Contrast Exam date and time: 07/09/2023 4:05 AM Age: 58 years old Clinical indication: Abdominal pain; Additional info: Pancreatic neoplasm, acute abdominal pain TECHNIQUE: Imaging protocol: Computed tomography of the abdomen and pelvis with contrast. Radiation optimization: All CT scans at this facility use at least one of these dose optimization techniques: automated exposure control; mA and/or kV adjustment per patient size (includes targeted exams where dose is matched to clinical indication); or iterative reconstruction. Contrast material: ISOVUE; Contrast volume: 75 ml; Contrast route: IV; REPORTING DATA: Count of CT and Cardiac NM exams in prior 12 months: This patient has received 2 known [address]s and 0 known cardiac nuclear medicine studies in the 12 months prior to the current study. COMPARISON: CT ABDOMEN PELVIS W CON 07/02/2023 10:46 AM FINDINGS: Liver: Normal. No mass. Gallbladder and bile ducts: Some prominence of the common bile duct is again noted measuring 11 mm in diameter. Pancreas: There is a 5.0 x 2.6 x 3.1 cm solid mass seen at the root of the mesentery adjacent to the uncinate process of the pancreas and the 3rd and 4th portion of the duodenal. Spleen: Normal. No splenomegaly. Adrenal glands: Normal. No mass. Kidneys and ureters: Normal. No hydronephrosis. Stomach and bowel: See Pancreas finding. Appendix: No evidence of appendicitis. Intraperitoneal space: Unremarkable. No free air. No significant fluid collection. Vasculature: Unremarkable. No abdominal aortic aneurysm. Lymph nodes: Some small adjacent lymph nodes are seen in the mesentery these measure up to 1 cm in diameter. This appearance is unchanged when compared to the prior study. Urinary bladder: Unremarkable as visualized. Reproductive: Unremarkable as visualized. Bones/joints: Unremarkable. No acute fracture. Soft tissues: Unremarkable. IMPRESSION: Stable appearing mass seen at the root of the mesentery adjacent to the uncinate process of the pancreas in the 3rd and 4th portions of the duodenal with adjacent mesenteric lymphadenopathy. This is worrisome for malignancy the origin is unclear. Endoscopic or imaging guided biopsy recommended. Overall this is not appear to be substantially changed from the prior examination [id number]
--- NOTE | 2023-07-09 03:55 | PC.NURSE ---
patient yelling and cursing staff. and charge nurse gokul at bedside. discussed patient breathing control and patient stated she wanted to leave AMA. staff explained that medical insurance coder takes a few minutes and that we would bring it just as soon as we could. pt elected to stay and wait for medicine. pt was no longer yelling or cursing when this nurse entered room. obtained a blanket for patient and dimmed lights
--- NOTE | 2023-07-09 03:55 | HMH.EDGENADL ---
Discharge Plan Disposition Patient Disposition: Xfer Other Condition: Fair Chief Complaint: Abdominal Pain Prescriptions Prescriptions: No Action escitalopram oxalate 10 mg tablet 10 mg PO DAILY diazepam [Valium] 5 mg tablet 5 mg PO TID Qty: 90 1RF gabapentin 800 mg tablet 800 mg PO Q8H Qty: 90 1RF Rx Instructions: one 800mg tablet q8h oxycodone 10 mg tablet 10 mg PO QID Qty: 120 0RF cyclobenzaprine 10 mg tablet See Rx Instructions .ROUTE .COMPLEX Qty: 90 0RF Dose Instruction: TAKE 1 TABLET BY MOUTH THREE TIMES A DAY Rx Instructions: TAKE 1 TABLET BY MOUTH THREE TIMES A DAY carvedilol 12.5 mg tablet See Rx Instructions .ROUTE .COMPLEX Rx Instructions: TAKE 1 TABLET BY MOUTH TWO TIMES A DAY omeprazole 40 mg capsule,delayed release(DR/EC) 40 mg PO BID aspirin [Adult Aspirin Regimen] 81 mg tablet,delayed release (DR/EC) 81 mg PO DAILY Hold Instructions: Resume on 06/05/23. levothyroxine 75 mcg tablet See Rx Instructions .ROUTE .COMPLEX Rx Instructions: TAKE 1 TABLET BY MOUTH EVERY DAY losartan-hydrochlorothiazide 100-25 mg tablet See Rx Instructions .ROUTE .COMPLEX Rx Instructions: TAKE 1 TABLET BY MOUTH TWO TIMES A DAY ropinirole 0.5 mg tablet See Rx Instructions .ROUTE .COMPLEX Rx Instructions: TAKE 1 TABLET BY MOUTH EVERY DAY bupropion HCl 200 mg tablet sustained-release 12 hr 200 mg PO BID diclofenac sodium 1 % gel See Rx Instructions .ROUTE .COMPLEX Rx Instructions: APPLY 2 GRAMS TO ELBOW,WRIST OR ENTIRE HAND FOUR TIMES A DAY fluticasone furoate-vilanterol [Breo Ellipta] 100-25 mcg/dose blister with device See Rx Instructions .ROUTE .COMPLEX Rx Instructions: TAKE 1 PUFF BY MOUTH EVERY DAY ondansetron 4 mg tablet,disintegrating 4 mg PO Q8H 4 Days Qty: 12 0RF Referrals Follow up/Referrals: Dashawn Magdaleno MD [Primary Care Provider] - See instructions Clinical Impressions Clinical Impression: Mass of pancreas, Abdominal pain, epigastric Stand Alone Forms Stand Alone Forms: Transfer Record - ED Instructions Patient Instructions: DI for Acute Abdominal Pain Discharge ED Provider: Magdaleno Mayberry Adult [facility] General Chief complaint: Abdominal Pain Stated complaint: abdominal pain Time Seen by Provider: 07/09/23 03:33 Mode of Arrival: Family Vehicle Source of Information: Patient Limitations: No Limitations Description of Symptoms (Recalled from ER Triage Doc. by RN): 58 yo female presents with CC of abd pain; according to patient she was seen here recently for complaints of abd pain and they found a mass and referred to GI in [facility] but has been unable to be seen yet. Complains pain is a burning pain that is 10/10 and began in her right side andright back and woke her up out of sleep about an hour ago. She stated she had a BM just before the pain began. Afebrile. History of Present Illness HPI narrative: This 58-year-old female presents to the emergency department with abdominal pain. Patient has been evaluated here recently for abdominal pain and states they found a mass and she has been referred to a specialist in [place]. She has not yet gotten an appointment because the referral reportedly just went through. Patient states she has been having pain in her right side for the last 24 hours but around 1 AM she woke up with acute burning pain and severe exacerbation and demonstrates to the epigastric area. She states pain radiates to the back. Patient states she is having normal bowel movements, no dysuria, no fevers. She states that taking deep breaths causes worse abdominal pain but she is not short of breath. She has had 1 episode of emesis since 1 AM and it was nonbloody, nonbilious. Patient states she is supposed to have follow-up with GI in [place] and her referral was just accepted but she does not yet have an appointme
--- NOTE | 2023-07-09 04:03 | PC.NURSE ---
pt unable to void at this time. return to bedside. rad at bedside to take patient to ct.
[2023-07-09 04:13] VITALS: BP 170/96; PULSE 80; O2SAT 100
[2023-07-09 04:31] VITALS: BP 159/96; PULSE 79; O2SAT 99
--- NOTE | 2023-07-09 04:39 | PC.NURSE ---
Calling [facility] for possible pt transfer
--- NOTE | 2023-07-09 04:45 | PC.NURSE ---
transfer center advised Dr. Meléndez would give a call back when he was finished reviewing pt images
--- NOTE | 2023-07-09 04:55 | PC.NURSE ---
Dr. Mayberry speaking with Dr. Meléndez at
[2023-07-09 04:57] LABS: Appearance,Urine CLEAR (Clear); Bilirubin,Urine Negative (Negative); Blood, Urine Negative (Negative); Color,Urine YELLOW (Yellow); Glucose,Urine (UA) Negative (Negative); Ketones,Urine Negative (Negative); Leukocyte Esterase,Urine Negative (Negative); Microscopic, Urine URINE MICROSCOPIC (MICROSCOPIC); Nitrate,Urine Negative (Negative); PH,Urine 8.5 (5.0-8.5); Protein,Urine Negative (Negative); Urobilinogen,Urine 0.2 EU/dl (0.2)
[2023-07-09 05:09] LABS: Barbiturates Screen,Urine Negative ng/ml (<200)
[2023-07-09 05:10] LABS: Amphetamine/Metha Screen,Urine Negative ng/ml (<1000); Benzodiazepines Screen,Urine Positive ng/ml (<200)
[2023-07-09 05:11] LABS: Cannabinoid Screen,Urine Positive ng/ml (<50)
[2023-07-09 05:12] LABS: Cocaine Screen,Urine Negative ng/ml (<300); Methadone Screen,Urine Negative ng/ml (<300)
[2023-07-09 05:13] LABS: Opiate Screen,Urine Positive ng/ml (<300)
[2023-07-09 05:14] LABS: Phencyclidine Screen,Urine Negative ng/ml (<25)
[2023-07-09 05:27] LABS: Bacteria,Urine Trace /lpf; Yeast,Urine Occasional /lpf
[2023-07-09 05:31] VITALS: BP 176/104; PULSE 76; RESP 19; TEMP 37; O2SAT 97
== END 2023-07-09 05:40 | disposition other institution (70) ==
PROVIDERS: Emergency Provider Emergency Medicine; PCP Emergency Medicine
DX: R10.13 Epigastric pain (principal); K86.9 Disease of pancreas, unspecified; J44.9 Chronic obstructive pulmonary disease, unspecified; K21.9 Gastro-esophageal reflux disease without esophagitis; I10 Essential (primary) hypertension; E03.9 Hypothyroidism, unspecified
CPT/HCPCS: 74177; 80053; 80305; 81001; 83605; 83690; 85025; 87086; 96374; 96375; 96376; 99285; J2405; Q9967

== ENCOUNTER 2023-11-27 23:50 | Outpatient (CLI) | payer MEDICARE, MEDICAID, SELFPAY ==
[2023-11-27 22:29] LABS: Amphetamine/Metha Screen,Urine Negative ng/ml (<1000); Barbiturates Screen,Urine Negative ng/ml (<200); Benzodiazepines Screen,Urine Negative ng/ml (<200); Cannabinoid Screen,Urine Negative ng/ml (<50); Cocaine Screen,Urine Negative ng/ml (<300); Methadone Screen,Urine Negative ng/ml (<300); Opiate Screen,Urine Positive ng/ml (<300); Phencyclidine Screen,Urine Negative ng/ml (<25)
== END 2023-11-27 23:59 ==
LOC: LAB.DROPOF 23:51
PROVIDERS: PCP Internal Medicine; Visit Provider Family Medicine
DX: Z79.899 Other long term (current) drug therapy (principal)
CPT/HCPCS: 80307

== ENCOUNTER 2023-12-21 13:36 | Outpatient (CLI) | payer MEDICARE, MEDICAID, SELFPAY ==
[2023-12-21] MEDS: SODIUM CHLORIDE 0.9% 10ML FLUSH SYRINGE 10 ML IV (13:45)
== END 2023-12-21 13:47 | disposition home or self-care (01) ==
LOC: INF 13:38
PROVIDERS: PCP Internal Medicine; Visit Provider Internal Medicine
DX: Z45.2 Encounter for adjustment and management of vascular access device (principal)
CPT/HCPCS: G0463; J1642